=== PATIENT | male | born 1935 | race Caucasian/White ===

== ENCOUNTER 2019-02-02 10:04 | Emergency (ER) | payer OTHER ==
--- OUTSIDE RECORDS SUMMARY | 2019-02-02 10:10 | XMS REPORT | Continuity of Care Document ---
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 Active [facility] PAIN FROM T12 4 Medical FRACTURE Center BACK PAIN: T-12 Active [facility] FX W/ MILD 4 [facility] FRAGMENT RETR [place] Bladder cancer Resolved Problem 10/22/2014 OPID [facility] Broken Resolved Problem 10/22/2014 11895 OPI legs<sup>1</sup [facility] BACKACHE NOS Active [facility] FX DORSAL Active [facility] VERTEBRA-CLOSE [facility] PAIN IN LIMB Active [facility] Medications Medication Details Route Status Patient Ordering Order Source Instructions Provider Date heparin sodium, 5,000 unit, Inactive [facility] porcine 2500 Route: SUB-Q, 2013 Medical UNT/ML Drug form: INJ, Center Injectable Q8H, Dosing Solution Weight 84, kg, Start date: 08/08/14 16:00:00, Duration: 30 day, Stop date: 09/07/14 8:00:00 Bisacodyl 10 mg, 1 supp, No Longer [facility] Route: AL, Drug Active 2013 Medical form: SUPP, Center Daily, Dosing Weight 84, kg, PRN Constipation, Start date: 08/07/14 10:54:00, Duration: 30 day, Stop date: 09/06/14 10:53:00Notes: (Same As: Dulcolax, Bisco-Lax) Lidocaine 1 patch, TOP, Active [facility] Hydrochloride Daily, Pain, 2014 Medical 0.05 MG/MG Remove after 12 Center Transdermal hours, # 30 Patch patch, 0 [Lidoderm] Refill(s)Specia l Instructions: Remove after 12 hours remove patch 1 patch, Route: No Longer [facility] TOP, Bedtime, Active 2013 Medical Drug form: [place] ERFILM, Start date: 08/06/14 21:00:00, Duration: 30 day, Stop date: 09/04/14 21:00:00Notes: Remove patch 12 hours after application each day. Naprosyn 500 mg, 1 tab, No Longer [facility] Route: PO, Drug Active 2013 Medical form: TAB, BID, Center Dosing Weight 84, kg, Start date: 08/06/14 17:00:00, Duration: 30 day, Stop date: 09/05/14 9:00:00Notes: (Same as: Naprosyn) Take with food. Miralax 17 gm, 1 pkt, No Longer [facility] Route: PO, Drug Active 2013 Medical form: PWDR, [place] BID, Dosing Weight 84, kg, Start date: 08/06/14 17:00:00, Duration: 30 day, Stop date: 09/05/14 9:00:00Notes: Dissolve in 8 oz of water or juice. (Same as: Miralax) Robaxin 500 mg, Route: Inactive [facility] PO, Drug form: 2013 Medical TAB, Q8H, Center Dosing Weight 84, kg, Start date: 08/06/14 16:00:00, Duration: 30 day, Stop date: 09/05/14 8:00:00 Lidocaine 1 patch, Route: No Longer [facility] Hydrochloride TOP, Daily, Active 2013 Medical 0.05 MG/MG Drug form: [place] Transdermal FILM, Start Patch date: 08/06/14 [Lidoderm] 12:00:00, Duration: 30 day, Stop date: 09/05/14 9:00:00, Remove after 12 hoursSpecial Instructions: Remove after 12 hoursNotes: Apply only once for up to 12 hours in a 24-hour period (12 hours on and 12 hours off). (Same as: Lidoderm) "Remove old patch before application of new patch" Acetaminophen 500 mg, 1 tab, Inactive [facility] Route: PO, Drug 2013 Medical form: TAB, Q6H, Center Dosing Weight 84, kg, Start date: 08/06/14 12:00:00, Duration: 30 day, Stop date: 09/05/14 6:00:00Notes: Max acetaminophen 4000 mg/day (4 gm/day). (Same as: Tylenol Extra Strength) Tramadol 100 mg, 2 tab, No Longer [place] Route: PO, Drug Active 2013 Medical form: TAB, Q6H, Center Dosing Weight 84, kg, PRN as needed for pain, Start date: 08/06/14 12:00:00, Duration: 30 day, Stop date: 09/05/14 6:00:00Notes: Not to exceed 400mg/day. (Same As: Ultram) Robaxin 500 mg, 1 tab, No Longer [place] Route: PO, Drug Active 2013 Medical form: TAB, Q8H, Center Dosing Weight 84, kg, PRN as needed for pain, Start date: 08/06/14 10:44:00, Duration: 30 day, Stop date: 09/05/14 10:43:00Notes: (Same as:Robaxin) Acetaminophen 500 mg, 1 tab, No Longer [place] Route: PO, Drug Active 2013 Medical form: TAB, Q4H, Center Dosing Weight 84.091, kg, PRN Temperature >100.4, Start date: 08/06/14 10:42:00, Duration: 30 day, Stop date: 09/05/14 10:41:00, T > 100.4Notes: Max acetaminophen 4000 mg/day (4 gm/day). (Same as: Tylenol Extra Strength) Acetaminophen 1 tab, Route: Inactive [place] 325 MG / PO, Drug Form: 2013 Medical Hydrocodone TAB, Dosing Center Bitartrate 10 Weight 84.091, MG Oral Tablet kg, Q4H, PRN as needed for pain, Start date: 08/06/14 10:42:00, Duration: 30 day, Stop date: 09/05/14 10:41:00Notes: Do not exceed 4gm/day of acetaminophen. (Same as: [place] 325/10) Saline Flush 10 ml, Route: No Longer [place] 0.9% MISC, Drug Active 2013 Medical Form: INJ, Center Dosing Weight 84.091, kg, Q12H, Start date: 08/05/14 21:00:00, Duration: 30 day, Stop date: 09/04/14 9:00:00Notes: (Same as: BD Posiflush) sennosides, [facility]URSING HOME 8.6 mg, 1 tab, No Longer [place] Route: PO, Drug Active 2013 Medical Form: TAB, Center Dosing Weight 84.091, kg, Q12H, Start date: 08/05/14 21:00:00, Duration: 30 day, Stop date: 09/04/14 9:00:00Notes: (Same as: Senokot) Docusate 100 mg, 1 cap, No Longer [place] Route: PO, Drug Active 2013 Medical form: CAP, Center Q12H, Dosing Weight 84.091, kg, Start date: 08/05/14 21:00:00, Duration: 30 day, Stop date: 09/04/14 9:00:00Notes: (Same as: Colace) (Do Not Crush) Famotidine 20 mg, 2 mL, No Longer [place] Route: IVP, Active 2013 Medical Drug form: INJ, Center Q12H, Dosing Weight 84.091, kg, Start date: 08/05/14 21:00:00, Duration: 30 day, Stop date: 09/04/14 9:00:00Notes: (Same as: Pepcid) Can be dilute in 5-10cc NS IVP: Slow IV push over at least 2 minutes. Diazepam 5 mg, 1 tab, No Longer [place] Route: PO, Drug Active 2013 Medical form: TAB, Q8H, Center Dosing Weight 84.091, kg, Start date: 08/05/14 16:00:00, Duration: 30 day, Stop date: 09/04/14 8:00:00Notes: (Same as: Valium) Acetaminophen 1 tab, Route: No Longer [place] 325 MG / PO, Drug Form: Active 2013 Medical Hydrocodone TAB, Dosing Center Bitartrate 10 Weight 84.091, MG Oral Tablet kg, Q4H, Start date: 08/05/14 16:00:00, Duration: 30 day, Stop date: 09/04/14 12:00:00Notes: Do not exceed 4gm/day of acetaminophen. (Same as: [place] 325/10) Saline Flush 10 ml, Route: No Longer [place] 0.9% MISC, Drug Active 2013 Medical Form: INJ, Center Dosing Weight 84.091, kg, PRN, PRN Line Flush, Start date: 08/05/14 12:29:00, Duration: 30 day, Stop date: 09/04/14 12:28:00Notes: (Same as: BD Posiflush) Ondansetron 4 mg, 2 mL, No Longer Route: IVP, Active 2013 Medical Drug form: INJ, Center Q8H, Dosing Weight 84.091, kg, PRN Nausea & Vomiting, Start date: 08/05/14 12:29:00, Duration: 30 day, Stop date: 09/04/14 12:28:00Notes: (Same as: Zofran) Morphine 2 mg, 1 mL, No Longer [place] Route: IVP, Active 2013 Medical Drug form: INJ, Center Q1H, Dosing Weight 84.091, kg, PRN Pain Score 7-10, Start date: 08/05/14 12:29:00, Duration: 30 day, Stop date: 09/04/14 12:28:00Notes: (Same as:MORPhine Sulfate) Acetaminophen 650 mg, 20.3 No Longer [place] mL, Route: PO, Active 2013 Medical Drug form: LIQ, Center Q4H, Dosing Weight 84.091, kg, PRN Pain 1-3/Temp > 99.5 F, Start date: 08/05/14 12:29:00, Duration: 30 day, Stop date: 09/04/14 12:28:00Notes: Max acetaminophen=4 000mg/day (4 gm/day). (Same as: Tylenol) Acetaminophen 1 tab, Route: No Longer [place] 325 MG / PO, Drug Form: Active 2013 Medical Hydrocodone TAB, Dosing Center Bitartrate 10 Weight 84.091, MG Oral Tablet kg, Q4H, PRN Pain Score 4-6, Start date: 08/05/14 12:29:00, Duration: 30 day, Stop date: 09/04/14 12:28:00Notes: Do not exceed 4gm/day of acetaminophen. (Same as: [place] 325/10) Zofran 4 mg, Route: Inactive [facility] IVP, Drug form: 2013 Medical INJ, ONCE, Center Dosing Weight 84.091, kg, Priority: STAT, Start date: 08/05/14 11:59:00, Stop date: 08/05/14 11:59:00 Diazepam 5 mg, 1 tab, Inactive [facility] Route: PO, Drug 2013 Medical form: TAB, Q8H, Center kg, Start date: 07/29/14 16:00:00, Duration: 30 day, Stop date: 08/28/14 8:00:00Notes: (Same as: Valium) Docusate Sodium 100 mg=1 cap, Active [facility] 100 MG Oral PO, Q12H, # 60 2013 Medical Capsule cap, 0 Center Refill(s) diazepam 5 mg 5 mg=1 tab, PO, Active [facility] oral tablet Q8H, # 30 tab, 2013 Medical 0 Refill(s) Center Acetaminophen 2 tab, PO, Q4H, Active [facility] 325 MG / Pain Score 2013 Medical Hydrocodone 7-10, # 60 tab, Center Bitartrate 10 0 Refill(s) MG Oral Tablet Saline Flush 5 ml, Route: Inactive [facility] 0.9% IVP, Drug Form: 2013 Medical INJ, kg, Q12H, Center Start date: 07/29/14 9:00:00, Duration: 30 day, Stop date: 08/27/14 21:00:00Notes: (Same as: BD Posiflush) Docusate 100 mg, 1 cap, Inactive [facility] Route: PO, Drug 2013 Medical form: CAP, Center Q12H, kg, Start date: 07/29/14 9:00:00, Duration: 30 day, Stop date: 08/27/14 21:00:00Notes: (Same as: Colace) (Do Not Crush) Famotidine 20 mg, 2 mL, Inactive [facility] Route: IVP, 2013 Medical Drug form: INJ, Center Q12H, kg, Start date: 07/29/14 9:00:00, Duration: 30 day, Stop date: 08/27/14 21:00:00Notes: (Same as: Pepcid) Can be dilute in 5-10cc NS IVP: Slow IV push over at least 2 minutes. Saline Flush 5 ml, Route: Inactive [place] 0.9% IVP, Drug Form: 2013 Medical INJ, kg, PRN, Center PRN Line Flush, Start date: 07/29/14 8:13:00, Duration: 30 day, Stop date: 08/28/14 8:12:00Notes: (Same as: BD Posiflush) Acetaminophen 650 mg, 20.3 Inactive [place] mL, Route: PO, 2013 Medical Drug form: LIQ, Center Q4H, kg, PRN Pain 1-3/Temp > 99.5 F, Start date: 07/29/14 8:13:00, Duration: 30 day, Stop date: 08/28/14 8:12:00Notes: Max acetaminophen=4 000mg/day (4 gm/day). (Same as: Tylenol) Acetaminophen 2 tab, Route: Inactive [place] 325 MG / PO, Drug Form: 2013 Medical Hydrocodone TAB, kg, Q4H, Center Bitartrate 10 PRN Pain Score MG Oral Tablet 7-10, Start date: 07/29/14 8:13:00, Duration: 30 day, Stop date: 08/28/14 8:12:00Notes: Do not exceed 4gm/day of acetaminophen. (Same as: [place] 325/10) Morphine 2 mg, 1 mL, Inactive [facility] Route: IVP, 2013 Medical Drug form: INJ, Center Q1H, kg, PRN Pain Score 7-10, Start date: 07/29/14 8:13:00, Duration: 30 day, Stop date: 08/28/14 8:12:00Notes: (Same as:MORPhine Sulfate) Allergies, Adverse Reactions, Alerts Substance Category Reaction Severity Reaction Status Date Comments Source type Reported SULFA Drug SULFA [facility] allergy 4 Neuro PENICILLIN Drug PENICILLIN [facility] allergy 4 Neuro penicillins Assertion Drug Active [facility] allergy [facility] sulfa drugs Assertion Drug Active [facility] allergy [facility] Immunizations Immunization Date Given Site Status Last Updated Comments Source Results Order Name Results Value Reference Date Interpretation Comments Source Range Spine Spine EXAM: THORACOLUMBAR SPINE 2 VIEWS 10/20 - [facility] thoracic 2 thoracic - [facility] views DX views DX DATE: Oct 20, 2014 12:43:00 PM Read by: Nirav Díaz MD Dictated Date/time: 10/20/14 14:58 Electronically Signed by: Nirav Díaz MD 10/20/14 15:00 FINAL REPORT INDICATION: 805.2 Closed Fracture of Dorsal [thoracic] Vertebra without Mention of Spinal Cord Injury COMPARISON: Thoracolumbar series 09/01/2014 TECHNIQUE: AP and lateral radiographs of the thoracolumbar spine FINDINGS: There has been no progressive loss in height at the T12 vertebral body fracture with moderate height loss. There is unchanged mild focal kyphosis at the T12 level. No subluxation of the thorac olumbar spine is apparent. The mediastinal contours are normal. IMPRESSION: Unchanged appearance of T12 vertebral body fracture. Spine Spine EXAM: THORACIC SPINE 2 VIEWS 09/01 - [facility] thoracic 2 thoracic - Counselor views DX views DX DATE: Sep 01, 2014 01:30:00 PM Read by: Nirav Díaz MD Dictated Date/time: 09/01/14 15:38 Electronically Signed by: Nirav Díaz MD 09/01/14 15:39 FINAL REPORT INDICATION: 805.2 Closed Fracture of Dorsal [thoracic] Vertebra without Mention of Spinal Cord Injury COMPARISON: Lumbar spine CT 08/05/2014 TECHNIQUE: AP and lateral radiographs of the thoracic spine FINDINGS: There is generalized osteopenia. There has been slight interval remodeling without progressive loss in height at the T12 vertebral body fracture. Remaining imaged vertebral body heights are m aintained. There is slight focal kyphosis at the T12 level. Mild thoracic spondylosis is unchanged. IMPRESSION: Mild remodeling without progressive loss in height at T12 vertebral body fracture. HEMATOLOGY Lymphocytes 8.3 % 20.0 - 08/05 [facility] 40.0 /2013 [facility] HEMATOLOGY Segs 80.3 % 45.0 - 08/05 [facility] 75.0 /2014 [facility] HEMATOLOGY Plt Morph See Note 4 08/05 4Result Comment: Due Medical (08/05/14 12:55 PM) to Center occassional clumps, the actual count may be slightly higher. HEMATOLOGY Monocytes 8.0 % 2.0 - 12.0 08/05 [facility] HEMATOLOGY RBC Morph Normal 08/05 [facility] (08/05/14 12:55 PM) [place] HEMATOLOGY Lymphocytes 1.1 K/CMM 1.0 - 5.5 08/05 [place] /2013 [facility] HEMATOLOGY Segs-Bands # 11.1 K/CMM 1.5 - 8.1 08/05 [facility] HEMATOLOGY Basophils 2.6 % 0.0 - 1.0 08/05 [facility] HEMATOLOGY Eosinophils 0.8 % 0.0 - 4.0 08/05 [facility] HEMATOLOGY Basophils # 0.4 K/CMM 0.0 - 0.2 08/05 [facility] HEMATOLOGY Eosinophils 0.1 K/CMM 0.0 - 0.5 08/05 [facility] HEMATOLOGY Monocytes # 1.1 K/CMM 0.0 - 0.8 08/05 [facility] HEMATOLOGY WBC 13.8 K/CMM 3.7 - 10.4 08/05 [facility] HEMATOLOGY RBC 4.67 M/CMM 4.70 - 08/05 [place] 6.10 [facility] HEMATOLOGY Hct 40.6 % 42.0 - 08/05 54.0 [facility] HEMATOLOGY Hgb 13.7 g/dL 14.0 - 08/05 18.0 [facility] HEMATOLOGY Platelet 178 K/CMM 133 - 450 08/05 [facility] HEMATOLOGY MPV 9.4 fL 7.4 - 10.4 08/05 [facility] HEMATOLOGY MCV 86.9 fL 80.0 - 08/05 [place] 94.0 [facility] HEMATOLOGY RDW 11.8 % 11.5 - 08/05 [place] 14.5 [facility] HEMATOLOGY MCH 29.4 pg 27.0 - 08/05 31.0 [facility] HEMATOLOGY MCHC 33.8 g/dL 32.0 - 08/05 [place] 36.0 [facility] CHEM PANEL eGFR 52 08/05 2Result Comment: The eGFR is calculated using the CKD-EPI formula. In most young, healthy individuals the eGFR will be >90 mL/ min/1.73m2. The eGFR declines with age. An eGFR of 60-89 may be normal in [facility] mL/min/1.73 some populations, particularly the elderly, for whom the CKD-EPI formula has not been extensively validated. Use of the eGFR is not recommended in the following populations: [address] Individuals with unstable creatinine concentrations, including patients and those with serious co-morbid conditions. Patients with extremes in muscle mass or diet. The data above are obtained from the National Kidney Disease Education Program (NKDEP) which additionally recommends that when the eGFR is used in patients with extremes of body mass index for purposes of drug dosing, the eGFR should be multiplied by the estimated BMI. CHEM PANEL CO2 28 meq/L 24 - 32 08/05 [facility] CHEM PANEL Chloride Lvl 101 meq/L 95 - 109 08/05 [facility] CHEM PANEL Calcium Lvl 8.6 mg/dL 8.5 - 10.5 08/05 [facility] CHEM PANEL Potassium 5.0 meq/L 3.5 - 5.1 08/05 1Result [facility] Comment: [facility] Slightly Hemolyzed. CHEM PANEL Sodium Lvl 135 meq/L 135 - 145 08/05 [facility] CHEM PANEL Creatinine 1.3 mg/dL 0.5 - 1.4 08/05 [facility] CHEM PANEL BUN 33 mg/dL 7 - 22 08/05 [facility] CHEM PANEL Glucose Lvl 125 mg/dL 70 - 99 08/05 3Interpretive Data: Adult reference range values reflect the clinical guidelines of the [place] [employer]. [facility] CHEM PANEL AGAP 11.0 meq/L 10.0 - 08/05 [facility] . [facility] CHEM PANEL eGFR 52 07/29 1Result Comment: The eGFR is calculated using the CKD-EPI formula. In most young, healthy individuals the eGFR will be >90 mL/ min/1.73m2. The eGFR declines with age. An eGFR of 60-89 may be normal in [facility] mL/min/1.73 some populations, particularly the elderly, for whom the CKD-EPI formula has not been extensively validated. Use of the eGFR is not recommended in the following populations: [address] Individuals with unstable creatinine concentrations, including patients and those with serious co-morbid conditions. Patients with extremes in muscle mass or diet. The data above are obtained from the National Kidney Disease Education Program (NKDEP) which additionally recommends that when the eGFR is used in patients with extremes of body mass index for purposes of drug dosing, the eGFR should be multiplied by the estimated BMI. CHEM PANEL Alk Phos 129 unit/L 39 - 136 07/29 [facility] CHEM PANEL AST 28 unit/L 0 - 37 07/29 [facility] CHEM PANEL Albumin Lvl 4.1 g/dL 3.5 - 5.0 07/29 [facility] CHEM PANEL ALT 53 unit/L 0 - 65 07/29 [facility] CHEM PANEL Bili Total 1.6 mg/dL 0.2 - 1.3 07/29 [facility] CHEM PANEL Glucose Lvl 151 mg/dL 70 - 99 07/29 2Interpretive Data: Adult reference range values reflect the clinical guidelines of the [place] [employer]. [facility] CHEM PANEL Creatinine 1.3 mg/dL 0.5 - 1.4 07/29 [facility] CHEM PANEL BUN 17 mg/dL 7 - 22 07/29 [facility] CHEM PANEL CO2 27 meq/L 24 - 32 07/29 [facility] CHEM PANEL Chloride Lvl 106 meq/L 95 - 109 07/29 [facility] CHEM PANEL Total 6.8 g/dL 6.4 - 8.4 07/29 [facility] CHEM PANEL Sodium Lvl 141 meq/L 135 - 145 07/29 [facility] CHEM PANEL Potassium 5.1 meq/L 3.5 - 5.1 07/29 [facility] CHEM PANEL Calcium Lvl 9.2 mg/dL 8.5 - 10.5 07/29 [facility] CHEM PANEL A/G Ratio 1.5 0.7 - 1.6 07/29 [facility] CHEM PANEL Globulin 2.7 g/dL 2.0 - 4.0 07/29 [facility] CHEM PANEL AGAP 13.1 meq/L 10.0 - 07/29 20.0 [facility] CHEM PANEL B/C Ratio 13 6 - 25 07/29 [facility] HEMATOLOGY Segs-Bands # 4.8 K/CMM 1.5 - 8.1 07/29 [facility] HEMATOLOGY Eosinophils 0.2 % 0.0 - 4.0 07/29 [facility] HEMATOLOGY Basophils 0.3 % 0.0 - 1.0 07/29 [facility] HEMATOLOGY Monocytes # 0.1 K/CMM 0.0 - 0.8 07/29 [facility] HEMATOLOGY Lymphocytes 0.6 K/CMM 1.0 - 5.5 07/29 [place] # /2013 [facility] HEMATOLOGY Lymphocytes 11.6 % 20.0 - 07/29 [place] 40.0 /2013 [facility] HEMATOLOGY Monocytes 1.2 % 2.0 - 12.0 07/29 [facility] HEMATOLOGY Segs 86.7 % 45.0 - 07/29 75.0 /2013 [facility] HEMATOLOGY PTT 34.9 s 22.9 - 07/29 4Interpretive [facility] 35.8 Data: [facility] Range: 57 - 92 Seconds HEMATOLOGY PT 14.6 s 12.0 - 07/29 14.7 [facility] HEMATOLOGY INR 1.13 0.85 - 07/29 3Interpretive Data: RECOMMENDED RANGES FOR PROTIME INR: [facility] 1.17 2.0-3.0 for most medical and surgical thromboembolic states. Medical 2.5-3.5 for artificial heart valves and recurrent embolism. Center INR SHOULD BE USED ONLY FOR PATIENTS ON STABLE ANTICOAGULANT THERAPY. HEMATOLOGY MCHC 33.6 g/dL 32.0 - 07/29 36.0 [facility] HEMATOLOGY MCH 29.8 pg 27.0 - 07/29 31.0 [facility] HEMATOLOGY RDW 12.5 % 11.5 - 07/29 14.5 [facility] HEMATOLOGY MPV 9.4 fL 7.4 - 10.4 07/29 [facility] HEMATOLOGY Platelet 148 K/CMM 133 - 450 07/29 [facility] HEMATOLOGY Hgb 16.0 g/dL 14.0 - 07/29 18.0 [facility] HEMATOLOGY MCV 88.5 fL 80.0 - 07/29 [place] 94.0 [facility] HEMATOLOGY WBC 5.5 K/CMM 3.7 - 10.4 07/29 [facility] HEMATOLOGY RBC 5.37 M/CMM 4.70 - 07/29 [facility] 6.10 [facility] HEMATOLOGY Hct 47.5 % 42.0 - 07/29 [facility] 54.0 /2013 [facility] Vital Signs Vital Sign Value Date Comments Source Weight 181.0 10/20/2014 [facility] Height 72 10/20/2014 [facility] Temperature Oral (F) 97.7 F 10/20/2014 [facility] Heart Rate 81 10/20/2014 [facility] Systolic (mm Hg) 156 10/20/2014 [facility] Diastolic (mm Hg) 89 10/20/2014 [facility] Weight 185 09/01/2014 [facility] Height 73 09/01/2014 [facility] Temperature Oral (F) 98.1 F 09/01/2014 [facility] Heart Rate 78 09/01/2014 [facility] Systolic (mm Hg) 128 09/01/2014 [facility] Diastolic (mm Hg) 84 09/01/2014 [facility] Systolic (mm Hg) 115 08/08/2014 [facility] Heart Rate 77 08/08/2014 [facility] Respitory Rate 18 08/08/2014 [facility] Temperature Oral (F) 97.7 F 08/08/2014 [facility] Diastolic (mm Hg) 68 08/08/2014 [facility] Systolic (mm Hg) 114 08/08/2014 [facility] Diastolic (mm Hg) 71 08/08/2014 [facility] Temperature Oral (F) 98.1 F 08/08/2014 [facility] Heart Rate 74 08/08/2014 [facility] Systolic (mm Hg) 113 08/08/2014 [facility] Diastolic (mm Hg) 68 08/08/2014 [facility] Heart Rate 71 08/08/2014 [facility] Temperature Oral (F) 97 F 08/08/2014 [facility] Respitory Rate 18 08/08/2014 [facility] Respitory Rate 16 08/07/2014 [facility] Weight 84 08/05/2014 [facility] BMI Calculated 23.78 08/05/2014 [facility] Height 187.96 cm 08/05/2014 [facility] Weight 84 08/05/2014 [facility] Weight 84 08/05/2014 [facility] Respitory Rate 18 07/29/2014 [facility] Systolic (mm Hg) 183 07/29/2014 [facility] Temperature Oral (F) 97.4 F 07/29/2014 [facility] Heart Rate 89 07/29/2014 [facility] Diastolic (mm Hg) 94 07/29/2014 [facility] BMI Calculated 24.46 07/29/2014 [facility] Weight 84.091 07/29/2014 [facility] Height 185.42 cm 07/29/2014 [facility] Temperature Oral (F) 98.5 F 07/29/2014 [facility] Systolic (mm Hg) 156 07/29/2014 [facility] Diastolic (mm Hg) 96 07/29/2014 [facility] Heart Rate 83 07/29/2014 [facility] Respitory Rate 16 07/29/2014 [facility] Encounters Location Location Encounter Encounter Reason Attending ADM DC Status Source Details Type Number For Provider Date Date Visit [facility] Inpatient [id number] Chris 07/29 07/29 [facility] /2013 [facility] Inpatient [id number] Chris 08/05 08/08 [facility] /2013 [facility] [id number] Chris 09/01 09/01 [facility] [address] [place] /2013 [facility] Outpt Diag [id number] Chris 09/01 09/02 [facility] /2013 [facility] Lab Report [id number] Chris 09/02 09/02 Toni Blandon [address] [place] /2013 [facility] Office [id number] Chris 10/20 10/20 [facility] Visit [address] [place] /2013 [facility] Outpt Diag [id number] Chris 10/20 10/21 [facility] /2013 [facility] Procedures Procedure Code Date Perfomer Comments Source
--- OUTSIDE RECORDS SUMMARY | 2019-02-02 10:11 | XMS REPORT | Summary of Care ---
:1935 Author Encounter HQ Rah_ry(LIYAH) [id number] Date(s): 09/01/14 - 09/01/14 [facility] Outpatient Imaging [address] Discharge Disposition: Home Physician Attending: Chris Mercado MD Reason for Visit 805.2 - FX DORSAL VERTE Problem List Condition Effective Dates Status Health Status Informant Bladder cancer(Confirmed) Resolved Broken legs(Confirmed)1 Resolved 73258 Allergies, Adverse Reactions, Alerts Substance Reaction Severity Status penicillins Active sulfa drugs Active Medications No data available for this section Medications Administered During Your Visit No data available for this section Immunizations No data available for this section Social History Social History Type Response Smoking Status Never smoker, Exposure to Tobacco Smoke None, Cigarette Smoking Last 365 Days No, Reg Smoking Cessation Counseling No
--- OUTSIDE RECORDS SUMMARY | 2019-02-02 10:11 | XMS REPORT | Summary of Care ---
:1935 Author Encounter HQ Rah_ry(LIYAH) [id number] Date(s): 10/20/14 - 10/20/14 [facility] Outpatient Imaging [address] Discharge Disposition: Home Physician Attending: Chris Mercado MD Reason for Visit 805.2 - FX DORSAL VERTE Problem List Condition Effective Dates Status Health Status Informant Bladder cancer(Confirmed) Resolved Broken legs(Confirmed)1 Resolved 42128 Allergies, Adverse Reactions, Alerts Substance Reaction Severity [...]
--- OUTSIDE RECORDS SUMMARY | 2019-02-02 10:11 | XMS REPORT | Summary of Care ---
:1935 Author Encounter HQ Fidel(LIYAH) [id number] Date(s): 08/05/14 - 08/08/[address] Discharge Disposition: Home Physician Attending: Chris Mercado MD Physician Admitting: Chris Mercado MD Physician_Referring: Sky Patino MD Reason for Visit INTRACTABLE PAIN FROM T12 FRACTURE Vital Signs Most recent to oldest 1 2 3 [Reference Range]: Height 187.96 cm (08/05/14 4:50 PM) Temperature Oral [96.4-99.1 97.7 DegF 98.1 DegF 97 DegF DegF] (08/08/14 8:28 AM) (08/08/14 4:23 AM) (08/08/14 12:40 AM) Systolic Blood Pressure 115 mmHg 114 mmHg 113 mmHg [90-140 mmHg] (08/08/14 8:28 AM) (08/08/14 4:23 AM) (08/08/14 12:40 AM) Diastolic Blood Pressure 68 mmHg 71 mmHg 68 mmHg [60-90 mmHg] (08/08/14 8:28 AM) (08/08/14 4:23 AM) (08/08/14 12:40 AM) Respiratory Rate [14-20 BRMIN] 18 BRMIN 18 BRMIN 16 BRMIN (08/08/14 8:28 AM) (08/07/14 7:53 PM) (08/07/14 4:07 PM) Peripheral Pulse Rate [60-100 77 bpm 74 bpm 71 bpm bpm] (08/08/14 8:28 AM) (08/08/14 4:23 AM) (08/08/14 12:40 AM) Weight 84 kg 84 kg 84 kg (08/05/14 4:50 PM) (08/05/14 3:14 PM) (08/05/14 3:13 PM) Body Mass Index 23.78 m2 (08/05/14 4:50 PM) Problem List Condition Effective Dates Status Health Status Informant Bladder cancer(Confirmed) Resolved Broken legs(Confirmed)1 Resolved 17120 Allergies, Adverse Reactions, Alerts Substance Reaction Severity Status penicillins Active sulfa drugs Active Medications acetaminophen 500 mg, 1 tab, Route: PO, Drug form: TAB, Q4H, Dosing Weight 84.091, kg, PRN Temperature >100.4, Start date: 08/06/14 10:42:00, Duration: 30 day, Stop date: 09/05/14 10:41:00, T > 100.4 Notes: Max acetaminophen 4000 mg/day (4 gm/day). (Same as: Tylenol Extra Strength) Start Date: 08/06/14 Stop Date: 08/08/14 Status: Discontinuedacetaminophen 500 mg, 1 tab, Route: PO, Drug form: TAB, Q6H, Dosing Weight 84, kg, Start date : 08/06/14 12:00:00, Duration: 30 day, Stop date: 09/05/14 6:00:00 Notes: Max acetaminophen 4000 mg/day (4 gm/day). (Same as: Tylenol Extra Strength) Start Date: 08/06/14 Stop Date: 08/06/14 Status: Discontinuedacetaminophen 650 mg, 20.3 mL, Route: PO, Drug form: LIQ, Q4H, Dosing Weight 84.091, kg, PRN Pain 1-3/Temp > 99.5 F, Start date: 08/05/14 12:29:00, Duration: 30 day, Stop date: 09/04/14 12:28:00 Notes: Max xuobddrbdmhjv=9587sk/day (4 gm/day). (Same as: Tylenol) Start Date: 08/05/14 Stop Date: 08/06/14 Status: Discontinuedacetaminophen-hydrocodone 325 mg-10 mg oral tablet 1 tab, Route: PO, Drug Form: TAB, Dosing Weight 84.091, kg, Q4H, PRN as needed for pain, Start date:08/06/14 10:42:00, Duration: 30 day, Stop date: 09/05/14 10 :41:00 Notes: Do not exceed 4gm/day of acetaminophen. (Same as: [place] 325/10) Start Date: 08/06/14 Stop Date: 08/06/14 Status: Discontinuedacetaminophen-hydrocodone 325 mg-10 mg oral tablet 1 tab, Route: PO, Drug Form: TAB, Dosing Weight 84.091, kg, Q4H, PRN Pain Score 4-6, Start date: 08/05/14 12:29:00, Duration: 30 day, Stop date: 09/04/14 12:28: 00 Notes: Do not exceed 4gm/day of acetaminophen. (Same as: [place] 325/10) Start Date: 08/05/14 Stop Date: 08/06/14 Status: Discontinuedacetaminophen-hydrocodone 325 mg-10 mg oral tablet 1 tab, Route: PO, Drug Form: TAB, Dosing Weight 84.091, kg, Q4H, Start date: 16:00:00, Duration: 30 day, Stop date: 09/04/14 12:00:00 Notes: Do not exceed 4gm/day of acetaminophen. (Same as: [place] 325/10) Start Date: 08/05/14 Stop Date: 08/06/14 Status: Discontinuedbisacodyl 10 mg, 1 supp, Route: NM, Drug form: SUPP, Daily, Dosing Weight 84, kg, PRN Constipation, Start date: 08/07/14 10:54:00, Duration: 30 day, Stop date: 10:53:00 Notes: (Same As: Dulcolax, Bisco-Lax) Start Date: 08/07/14 Stop Date: 08/08/14 Status: Discontinueddiazepam 5 mg, 1 tab, Route: PO, Drug form: TAB, Q8H, Dosing Weight 84.091, kg, Start date: 08/05/14 16:00:00, Duration: 30 day, Stop date: 09/04/14 8:00:00 Notes: (Same as: Valium) Start Date: 08/05/14 Stop Date: 08/06/14 Status: Discontinueddocusate 100 mg, 1 cap, Route: PO, Drug form: CAP, Q12H, Dosing Weight 84.091, kg, Start date: 08/05/14 21:00:00, Duration: 30 day, Stop date: 09/04/14 9:00:00 Notes: (Same as: Colace) (Do Not Crush) Start Date: 08/05/14 Stop Date: 08/06/14 Status: Discontinuedfamotidine 20 mg, 2 mL, Route: IVP, Drug form: INJ, Q12H, Dosing Weight 84.091, kg, Start date: 08/05/14 21:00:00, Duration: 30 day, Stop date: 09/04/14 9:00:00 Notes: (Same as: Pepcid)Can be dilute in 5-10cc NS IVP: Slow IV push over at least 2 minutes. Start Date: 08/05/14 Stop Date: 08/08/14 Status: Discontinuedheparin 5000 units/mL injectable solution 5,000 unit, Route: SUB-Q, Drug form: INJ, Q8H, Dosing Weight 84, kg, Start date : 08/08/14 16:00:00, Duration: 30 day, Stop date: 09/07/14 8:00:00 Start Date: 08/08/14 Stop Date: 08/08/14 Status: CanceledLidoderm 5% topical film (patch) 1 patch, TOP, Daily, Pain, Remove after 12 hours, # 30 patch, 0 Refill(s) Special Instructions: Remove after 12 hours Start Date: 08/07/14 Status: OrderedLidoderm 5% topical film (patch) 1 patch, Route: TOP, Daily, Drug form: FILM, Start date: 08/06/14 12:00:00, Duration: 30 day, Stop date: 09/05/14 9:00:00, Remove after 12 hours Special Instructions: Remove after 12 hours Notes: Apply only once for up to 12 hours in x37-caus period (12 hours on and 12 hours off).(Same as: Lidoderm)"Remove old patch before application of new patch" Start Date: 08/06/14 Stop Date: 08/08/14 Status: DiscontinuedMiraLax 17 gm, 1 pkt, Route: PO, Drug form: PWDR, BID, Dosing Weight 84, kg, Start date : 08/06/14 17:00:00, Duration: 30 day, Stop date: 09/05/14 9:00:00 Notes: Dissolve in 8 oz of water or juice.(Same as: Miralax) Start Date: 08/06/14 Stop Date: 08/08/14 Status: Discontinuedmorphine Sulfate 2 mg, 1 mL, Route: IVP, Drug form: INJ, Q1H, Dosing Weight 84.091, kg, PRN Pain Score 7-10, Start date: 08/05/14 12:29:00, Duration: 30 day, Stop date: 12:28:00 Notes: (Same as:MORPhine Sulfate) Start Date: 08/05/14 Stop Date: 08/06/14 Status: DiscontinuedNaprosyn 500 mg, 1 tab, Route: PO, Drug form: TAB, BID, Dosing Weight 84, kg, Start date : 08/06/14 17:00:00, Duration: 30 day, Stop date: 09/05/14 9:00:00 Notes: (Same as: Naprosyn) Take with food. Start Date: 08/06/14 Stop Date: 08/08/14 Status: Discontinuedondansetron 4 mg, 2 mL, Route: IVP, Drug form: INJ, Q8H, Dosing Weight 84.091, kg, PRN Nausea & Vomiting, Start date: 08/05/14 12:29:00, Duration: 30 day, Stop date: 09/04/14 12:28:00 Notes: (Same as: Zofran) Start Date: 08/05/14 Stop Date: 08/08/14 Status: Discontinuedremove patch 1 patch, Route: TOP, Bedtime, Drug form: ERFILM, Start date: 08/06/14 21:00:00, Duration: 30 day, Stop date: 09/04/14 21:00:00 Notes: Remove patch 12 hours after application each day. Start Date: 08/06/14 Stop Date: 08/08/14 Status: DiscontinuedRobaxin 500 mg, 1 tab, Route: PO, Drug form: TAB, Q8H, Dosing Weight 84, kg, PRN as needed for pain, Start date: 08/06/14 10:44:00, Duration: 30 day, Stop date: 10:43:00 Notes: (Same as:Robaxin) Start Date: 08/06/14 Stop Date: 08/08/14 Status: DiscontinuedRobaxin 500 mg, Route: PO, Drug form: TAB, Q8H, Dosing Weight 84, kg, Start date: 16:00:00, Duration: 30 day, Stop date: 09/05/14 8:00:00 Start Date: 08/06/14 Stop Date: 08/06/14 Status: CanceledSaline Flush 0.9% 10 ml, Route: MISC, Drug Form: INJ, Dosing Weight 84.091, kg, PRN, PRN Line Flush, Start date: 08/05/14 12:29:00, Duration: 30 day, Stop date: 09/04/14 12: 28:00 Notes: (Same as: BD Posiflush) Start Date: 08/05/14 Stop Date: 08/08/14 Status: DiscontinuedSaline Flush 0.9% 10 ml, Route: MISC, Drug Form: INJ, Dosing Weight 84.091, kg, Q12H, Start date: 08/05/14 21:00:00, Duration: 30 day, Stop date: 09/04/14 9:00:00 Notes: (Same as: BD Posiflush) Start Date: 08/05/14 Stop Date: 08/08/14 Status: Discontinuedsenna 8.6 mg, 1 tab, Route: PO, Drug Form: TAB, Dosing Weight 84.091, kg, Q12H, Start date: 08/05/14 21:00:00, Duration: 30 day, Stop date: 09/04/14 9:00:00 Notes: (Same as: Senokot) Start Date: 08/05/14 Stop Date: 08/06/14 Status: Discontinuedtramadol 100 mg, 2 tab, Route: PO, Drug form: TAB, Q6H, Dosing Weight 84, kg, PRN as needed for pain, Start date: 08/06/14 12:00:00, Duration: 30 day, Stop date: 6:00:00 Notes: Not to exceed 400mg/day. (Same As: Ultram) Start Date: 08/06/14 Stop Date: 08/08/14 Status: DiscontinuedZofran 4 mg, Route: IVP, Drug form: INJ, ONCE, Dosing Weight 84.091, kg, Priority: STAT , Start date: 08/05/14 11:59:00, Stop date: 08/05/14 11:59:00 Start Date: 08/05/14 Stop Date: 08/05/14 Status: Completed Results ELECTROLYTES Most recent to oldest [Reference Range]: 1 Sodium Lvl [135-145 mEq/L] 135 mEq/L (08/05/14 12:22 PM) Potassium Lvl [3.5-5.1 mEq/L] 5.0 mEq/L 1 (08/05/14 12:22 PM) Chloride Lvl [95-109 mEq/L] 101 mEq/L (08/05/14 12:22 PM) CO2 [24-32 mEq/L] 28 mEq/L (08/05/14 12:22 PM) AGAP [10.0-20.0 mEq/L] 11.0 mEq/L (08/05/14 12:22 PM) 1Result Comment: Specimen Slightly Hemolyzed.CHEM PANEL Most recent to oldest [Reference Range]: 1 Creatinine Lvl [0.5-1.4 mg/dL] 1.3 mg/dL (08/05/14 12:22 PM) eGFR 52 mL/min/1.73m2 2 *NA* (08/05/14 12:22 PM) BUN [7-22 mg/dL] 33 mg/dL *HI* (08/05/14 12:22 PM) Glucose Lvl [70-99 mg/dL] 125 mg/dL 3 *HI* (08/05/14 12:22 PM) Calcium Lvl [8.5-10.5 mg/dL] 8.6 mg/dL (08/05/14 12:22 PM) 2Result Comment: The eGFR is calculated using the CKD-EPI formula. In most young , healthy individualsthe eGFR will be >90 mL/min/1.73m2. The eGFR declines with age. An eGFR of 60-89 may be normal in some populations, particularly the elderly, for whom the CKD-EPI formula has not been extensively validated. Use of the eGFR is not recommended in the following populations: Individuals with unstable creatinine concentrations, including patients and those with serious co-morbid conditions. Patients with extremes in muscle mass or diet. The data above are obtained from the National Kidney Disease Education Program ( NKDEP) which additionally recommends that when the eGFR is used in patients with extremes of body mass index for purposesof drug dosing, the eGFR should be multiplied by the estimated BMI.3Interpretive Data: Adult reference range values reflect the clinical guidelines of the [place] [employer].HEMATOLOGY Most recent to oldest [Reference Range]: 1 WBC [3.7-10.4 K/CMM] 13.8 K/CMM *HI* (08/05/14 12:55 PM) RBC [4.70-6.10 M/CMM] 4.67 M/CMM *LOW* (08/05/14 12:55 PM) Hgb [14.0-18.0 g/dL] 13.7 g/dL *LOW* (08/05/14 12:55 PM) Hct [42.0-54.0 %] 40.6 % *LOW* (08/05/14 12:55 PM) MCV [80.0-94.0 fL] 86.9 fL (08/05/14 12:55 PM) MCH [27.0-31.0 pg] 29.4 pg (08/05/14 12:55 PM) MCHC [32.0-36.0 g/dL] 33.8 g/dL (08/05/14 12:55 PM) RDW [11.5-14.5 %] 11.8 % (08/05/14 12:55 PM) Platelet [133-450 K/CMM] 178 K/CMM (08/05/14 12:55 PM) MPV [7.4-10.4 fL] 9.4 fL (08/05/14 12:55 PM) Segs [45.0-75.0 %] 80.3 % *HI* (08/05/14 12:55 PM) Lymphocytes [20.0-40.0 %] 8.3 % *LOW* (08/05/14 12:55 PM) Monocytes [2.0-12.0 %] 8.0 % (08/05/14 12:55 PM) Eosinophils [0.0-4.0 %] 0.8 % (08/05/14 12:55 PM) Basophils [0.0-1.0 %] 2.6 % *HI* (08/05/14 12:55 PM) Segs-Bands # [1.5-8.1 K/CMM] 11.1 K/CMM *HI* (08/05/14 12:55 PM) Lymphocytes # [1.0-5.5 K/CMM] 1.1 K/CMM (08/05/14 12:55 PM) Monocytes # [0.0-0.8 K/CMM] 1.1 K/CMM *HI* (08/05/14 12:55 PM) Eosinophils # [0.0-0.5 K/CMM] 0.1 K/CMM (08/05/14 12:55 PM) Basophils # [0.0-0.2 K/CMM] 0.4 K/CMM *HI* (08/05/14 12:55 PM) RBC Morph Normal (08/05/14 12:55 PM) Plt Morph See Note 4 (08/05/14 12:55 PM) 4Result Comment: Due to occassional clumps, the actual count may be slightly higher. Medications Administered During Your Visit No data available for this section Immunizations No data available for this section Social History Social History Type Response Smoking Status Never smoker, Exposure to Tobacco Smoke None, Cigarette Smoking Last 365 Days No, Reg Smoking Cessation Counseling No Assessment and Plan Extracted from: Title: Clinical Document Author: Stormy Mathis DO Date: 08/06/14 PATIENT NAME: Jann Duran ATTENDING PHYSICIAN: Chris Mercado MD CONSULTING PHYSICIAN: Stormy Mathis DO DATE OF ADMISSION: 08/05/2014 REASON FOR CONSULTATION: preoperative clearance HISTORY OF PRESENT ILLNESS: 78 y/o male with h/o bladder CA s/p resection and BCG was recently admitted to [facility] after sustaining a T12 burst fracture after trying to lift a baby grand piano. He was e valuated by NS who recommended TLSO brace and follow up as outpatient. Yesterday, he fell while walking to the bathroom; states his legs gave out. He was transferred back to [facility] after repeat imaging noted worsening of his compression fracture. Patient has been taking scheduled norco and valium since his discharge. Since then, he has felt nauseous with decreased appetite and noted to have progressive weakness. Prior to fracture, patient states he was very active. He does all the yard and house work. He does not exercise or climb stairs regularly. He denies chest pain or dyspnea with any activity. REVIEW OF SYSTEMS: CONSTITUTIONAL: positive for weight loss in last week. negative for fever or malaise HEENT: positive for hearing loss. negative for change in vision, nasal congestion, sore throat or headaches CARDIOVASCULAR: negative for palpitations, orthopnea or peripheral edema RESPIRATORY: negative for cough or hemoptysis GASTROINTESTINAL: negative for N/V/D/C, hematemesis, hematochezia or melena GENITOURINARY: negative for dysuria, hematuria or frequency HEMATOLOGICAL: negative for easy bruising or spontaneous bleeding ENDOCRINE: negative for peripheral neuropathy or intolerance to temperature changes MUSCULOSKELETAL: nper HPI NEUROLOGICAL: negative for dizziness, numbness or weakness DERM: negative for rash or lesions PMHx: bladder CA, skin CA PSHx: three bladder resections, repair of b/l leg fractures FMHx: denies SoHx: remote history of tobacco use. denies EtOH or illicit drug use. with three children. retired; worked for [employer] ALLERGIES: PCN (rash), sulfa (hematuria?) MEDICATIONS: norco valium PHYSICAL EXAM: VITALS: blood pressure 115/60, pulse 71, respirations 19, temperature 97.7, pulse ox 96% on room air GENERAL: awake, alert and oriented x 3. at bedside HEENT: PERRL. EOMI. anicteric sclera. moist mucous membranes. OP is clear NECK: supple, no lymphadenopathy. CARDIOVASCULAR: S1 S2 PULMONARY: clear to ascultation bilaterally ABDOMEN: soft, nontender. positive bowel sounds. EXTREMITIES: no cyanosis, clubbing or edema NEURO: CN II - XII grossly intact SKIN: no rashes, ecchymosis or lesions ASSESSMENT AND PLAN: 78 y/o male with h/o bladder CA s/p resection and BCG transferred from OSH with worsening compression of T12 burst fracture preoperative clearance: ECG notes NSR with no ST changes or TWI. patient low risk; no further testing needed acute pain: discontinue valium. start lidoderm patch, tramadol 100 mg PO Q6 and tylenol 500 mg PO Q6. change norco to prn. start robaxin prn. bowel regimen: start miralax T12 burst fracture: considering surgical options; management per primary team PPX: SCD/TEDs Thank you for allowing us to assist in this patient's care. CORY HOSPITALIST GIS INSTRUCTOR; please page [phone] with questions
--- OUTSIDE RECORDS SUMMARY | 2019-02-02 10:11 | XMS REPORT | Continuity of Care Document ---
:1935 Author Organization [facility] Care Team Providers Name Role Phone Chris Mercado MD Unavailable Insurance Providers Payer name Policy type / Policy ID Covered republican ID Policy Hdz Coverage type [place]IC[place] [employer] AETNA (PPO) AETNA - OPEN ACCESS (MEDICARE REPLACEMENT HM AETNA (PPO) AETNA (PPO) AETNA (PPO) AETNA (MEDICARE REPLACEMENT PPO) AETNA - OPEN ACCESS (MEDICARE REPLACEMENT HM AETNA (PPO) AETNA (MEDICARE REPLACEMENT PPO) AETNA - OPEN ACCESS (MEDICARE REPLACEMENT HM AETNA (PPO) AETNA - OPEN ACCESS (MEDICARE REPLACEMENT HM AETNA (PPO) [place] [employer] AETNA - OPEN ACCESS (MEDICARE REPLACEMENT HM AETNA (PPO) MEDIC[place]: [employer] AETNA - OPEN ACCESS (MEDICARE REPLACEMENT HM AETNA (PPO) [place]: [employer] AETNA - OPEN ACCESS (MEDICARE REPLACEMENT HM AETNA (PPO) MEDIC[place]: [employer] AETNA - OPEN ACCESS (MEDICARE REPLACEMENT HM AETNA (PPO) MEDIC[place]: [employer] AETNA - OPEN ACCESS (MEDICARE REPLACEMENT HM AETNA (PPO) MEDIC[place]: [employer] AETNA - OPEN ACCESS (MEDICARE REPLACEMENT HM AETNA (PPO) MEDIC[place]: [employer] AETNA - OPEN ACCESS (MEDICARE REPLACEMENT HM AETNA (PPO) MEDIC[place]: [employer] AETNA - OPEN ACCESS (MEDICARE REPLACEMENT HM AETNA (PPO) MEDICARE [place]: [employer] AETNA - OPEN ACCESS (MEDICARE REPLACEMENT HM AETNA (PPO) MEDICARE [place]: [employer] AETNA - OPEN ACCESS (MEDICARE REPLACEMENT HM AETNA (PPO) MEDICARE [place]: [employer] AETNA - OPEN ACCESS (MEDICARE REPLACEMENT HM AETNA (PPO) MEDICARE [place]: [employer] AETNA - OPEN ACCESS (MEDICARE REPLACEMENT HM AETNA (PPO) MEDIC[place]: [employer] AETNA - OPEN ACCESS (MEDICARE REPLACEMENT HM AETNA (PPO) Encounters Encounter Performer Location Date Office Visit Chris Mercado MD [facility] [place] Sep 01, 2014 Allergies, Adverse Reactions, Alerts Type Substance Reaction Status Drug allergy SULFA Active Drug allergy PENICILLIN Active Problems Problem Effective Dates Problem Status CLOSED FRACTURE OF DORSAL [THORACIC] VERTEBRA WITHOUT Aug 30, 2014 Active MENTION OF SPINAL CORD INJURY Procedures Date Description Comments Sep 01, 2014 smoking status Never smoker Vital Signs Date Description Test Result Sep 01, 2014 weight E&M - 3141-9 WEIGHT 185 lb Sep 01, 2014 height E&M - 8302-2 HEIGHT 73 in Sep 01, 2014 temperature E&M TEMPERATURE 98.1 deg f Sep 01, 2014 pulse rate E&M - 8867-4 PULSE RATE 78 /min Sep 01, 2014 blood pressure, systolic - 8480-6 BP SYSTOLIC 128 mm Hg Sep 01, 2014 blood pressure, diastolic - 8462-4 BP DIASTOLIC 84 mm Hg
--- OUTSIDE RECORDS SUMMARY | 2019-02-02 10:11 | XMS REPORT | Continuity of Care Document ---
:1935 Author Organization [facility] Care Team Providers Name Role Phone Chris Mercado MD Unavailable Insurance Providers Payer name Policy type / Policy ID Covered democrat ID Policy Hdz Coverage type MEDICARE [place]: [...] AETNA (PPO) Encounters Encounter Performer Location Date Lab Report Chris Mercado MD [facility] [place] Sep 02, 2014 Allergies, Adverse Reactions, Alerts Type Substance [...]
--- OUTSIDE RECORDS SUMMARY | 2019-02-02 10:11 | XMS REPORT | Summary of Care ---
:1935 Author Encounter JOSE Parra(LIYAH) [id number] Date(s): 07/29/14 - 07/29/[address] Discharge Disposition: Home Physician Attending: Chris Mercado MD Physician Admitting: Chris Mercado MD Physician_Referring: Sky Patino MD Reason for Visit BACK PAIN: T-12 FX W/ MILD FRAGMENT RETROPULSION Vital Signs Most recent to oldest [Reference Range]: 1 2 Height 185.42 cm (07/29/14 8:24 AM) Temperature Oral [96.4-99.1 DegF] 97.4 DegF 98.5 DegF (07/29/14 12:05 PM) (07/29/14 8:00 AM) Systolic Blood Pressure [90-140 mmHg] 183 mmHg 1 156 mmHg *HI* *HI* (07/29/14 12:05 PM) (07/29/14 8:00 AM) Diastolic Blood Pressure [60-90 mmHg] 94 mmHg 2 96 mmHg *HI* *HI* (07/29/14 12:05 PM) (07/29/14 8:00 AM) Respiratory Rate [14-20 BRMIN] 18 BRMIN 16 BRMIN (07/29/14 12:05 PM) (07/29/14 8:00 AM) Peripheral Pulse Rate [60-100 bpm] 89 bpm 83 bpm (07/29/14 12:05 PM) (07/29/14 8:00 AM) Weight 84.091 kg (07/29/14 8:24 AM) Body Mass Index 24.46 m2 (07/29/14 8:24 AM) 1Result Comment: checked it a second time on right arm 144/962Result Comment: checked it a second time on right arm 144/96 Problem List Condition Effective Dates Status Health Status Informant Bladder cancer(Confirmed) Resolved Broken legs(Confirmed)1 Resolved 27400 Allergies, Adverse Reactions, Alerts Substance Reaction Severity Status penicillins Active sulfa drugs Active Medications acetaminophen 650 mg, 20.3 mL, Route: PO, Drug form: LIQ, Q4H, kg, PRN Pain 1-3/Temp > 99.5 F , Start date: 07/29/14 8:13:00, Duration: 30 day, Stop date: 08/28/14 8:12:00 Notes: Max hsveytdqnjmij=1564vv/day (4 gm/day). (Same as: Tylenol) Start Date: 07/29/14 Stop Date: 07/29/14 Status: Discontinuedacetaminophen-hydrocodone 325 mg-10 mg oral tablet 2 tab, Route: PO, Drug Form: TAB, kg, Q4H, PRN Pain Score 7-10, Start date: 10/30 8:13:00, Duration: 30 day, Stop date: 08/28/14 8:12:00 Notes: Do not exceed 4gm/day of acetaminophen. (Same as: [place] 325/10) Start Date: 07/29/14 Stop Date: 07/29/14 Status: Discontinuedacetaminophen-hydrocodone 325 mg-10 mg oral tablet 2 tab, PO, Q4H, Pain Score 7-10, # 60 tab, 0 Refill(s) Start Date: 07/29/14 Status: Ordereddiazepam 5 mg, 1 tab, Route: PO, Drug form: TAB, Q8H, kg, Start date: 07/29/14 16:00:00, Duration: 30 day, Stop date: 08/28/14 8:00:00 Notes: (Same as: Valium) Start Date: 07/29/14 Stop Date: 07/29/14 Status: Canceleddiazepam 5 mg oral tablet 5 mg=1 tab, PO, Q8H, # 30 tab, 0 Refill(s) Start Date: 07/29/14 Status: Ordereddocusate 100 mg, 1 cap, Route: PO, Drug form: CAP, Q12H, kg, Start date: 07/29/14 9:00:00 , Duration: 30 day, Stop date: 08/27/14 21:00:00 Notes: (Same as: Colace) (Do Not Crush) Start Date: 07/29/14 Stop Date: 07/29/14 Status: Discontinueddocusate sodium 100 mg oral capsule 100 mg=1 cap, PO, Q12H, # 60 cap, 0 Refill(s) Start Date: 07/29/14 Status: Orderedfamotidine 20 mg, 2 mL, Route: IVP, Drug form: INJ, Q12H, kg, Start date: 07/29/14 9:00:00 , Duration: 30 day, Stop date: 08/27/14 21:00:00 Notes: (Same as: Pepcid)Can be dilute in 5-10cc NS IVP: Slow IV push over at least 2 minutes. Start Date: 07/29/14 Stop Date: 07/29/14 Status: Discontinuedmorphine Sulfate 2 mg, 1 mL, Route: IVP, Drug form: INJ, Q1H, kg, PRN Pain Score 7-10, Start date : 07/29/14 8:13:00, Duration: 30 day, Stop date: 08/28/14 8:12:00 Notes: (Same as:MORPhine Sulfate) Start Date: 07/29/14 Stop Date: 07/29/14 Status: DiscontinuedSaline Flush 0.9% 5 ml, Route: IVP, Drug Form: INJ, kg, PRN, PRN Line Flush, Start date: 07/29/14 8:13:00, Duration: 30 day, Stop date: 08/28/14 8:12:00 Notes: (Same as: BD Posiflush) Start Date: 07/29/14 Stop Date: 07/29/14 Status: DiscontinuedSaline Flush 0.9% 5 ml, Route: IVP, Drug Form: INJ, kg, Q12H, Start date: 07/29/14 9:00:00, Duration: 30 day, Stop date: 08/27/14 21:00:00 Notes: (Same as: BD Posiflush) Start Date: 07/29/14 Stop Date: 07/29/14 Status: Discontinued Results ELECTROLYTES Most recent to oldest [Reference Range]: 1 Sodium Lvl [135-145 mEq/L] 141 mEq/L (07/29/14 9:47 AM) Potassium Lvl [3.5-5.1 mEq/L] 5.1 mEq/L (07/29/14 9:47 AM) Chloride Lvl [95-109 mEq/L] 106 mEq/L (07/29/14 9:47 AM) CO2 [24-32 mEq/L] 27 mEq/L (07/29/14 9:47 AM) AGAP [10.0-20.0 mEq/L] 13.1 mEq/L (07/29/14 9:47 AM) CHEM PANEL Most recent to oldest [Reference Range]: 1 Creatinine Lvl [0.5-1.4 mg/dL] 1.3 mg/dL (07/29/14 9:47 AM) eGFR 52 mL/min/1.73m2 1 *NA* (07/29/14 9:47 AM) BUN [7-22 mg/dL] 17 mg/dL (07/29/14 9:47 AM) B/C Ratio [6-25] 13 (07/29/14 9:47 AM) Glucose Lvl [70-99 mg/dL] 151 mg/dL 2 *HI* (07/29/14 9:47 AM) Total Protein [6.4-8.4 g/dL] 6.8 g/dL (07/29/14 9:47 AM) Albumin Lvl [3.5-5.0 g/dL] 4.1 g/dL (07/29/14 9:47 AM) Globulin [2.0-4.0 g/dL] 2.7 g/dL (07/29/14 9:47 AM) A/G Ratio [0.7-1.6] 1.5 (07/29/14 9:47 AM) Calcium Lvl [8.5-10.5 mg/dL] 9.2 mg/dL (07/29/14 9:47 AM) ALT [0-65 unit/L] 53 unit/L (07/29/14 9:47 AM) AST [0-37 unit/L] 28 unit/L (07/29/14 9:47 AM) Alk Phos [39-136 unit/L] 129 unit/L (07/29/14 9:47 AM) Bili Total [0.2-1.3 mg/dL] 1.6 mg/dL *HI* (07/29/14 9:47 AM) 1Result Comment: The eGFR is calculated using [...] eGFR should be multiplied by the estimated BMI.2Interpretive Data: Adult reference range values reflect the clinical guidelines of the [place] [employer].HEMATOLOGY Most recent to oldest [Reference Range]: 1 WBC [3.7-10.4 K/CMM] 5.5 K/CMM (07/29/14 9:47 AM) RBC [4.70-6.10 M/CMM] 5.37 M/CMM (07/29/14 9:47 AM) Hgb [14.0-18.0 g/dL] 16.0 g/dL (07/29/14 9:47 AM) Hct [42.0-54.0 %] 47.5 % (07/29/14 9:47 AM) MCV [80.0-94.0 fL] 88.5 fL (07/29/14 9:47 AM) MCH [27.0-31.0 pg] 29.8 pg (07/29/14 9:47 AM) MCHC [32.0-36.0 g/dL] 33.6 g/dL (07/29/14 9:47 AM) RDW [11.5-14.5 %] 12.5 % (07/29/14 9:47 AM) Platelet [133-450 K/CMM] 148 K/CMM (07/29/14 9:47 AM) MPV [7.4-10.4 fL] 9.4 fL (07/29/14 9:47 AM) Segs [45.0-75.0 %] 86.7 % *HI* (07/29/14 9:47 AM) Lymphocytes [20.0-40.0 %] 11.6 % *LOW* (07/29/14 9:47 AM) Monocytes [2.0-12.0 %] 1.2 % *LOW* (07/29/14 9:47 AM) Eosinophils [0.0-4.0 %] 0.2 % (07/29/14 9:47 AM) Basophils [0.0-1.0 %] 0.3 % (07/29/14 9:47 AM) Segs-Bands # [1.5-8.1 K/CMM] 4.8 K/CMM (07/29/14 9:47 AM) Lymphocytes # [1.0-5.5 K/CMM] 0.6 K/CMM *LOW* (07/29/14 9:47 AM) Monocytes # [0.0-0.8 K/CMM] 0.1 K/CMM (07/29/14 9:47 AM) PT [12.0-14.7 seconds] 14.6 seconds (07/29/14 9:47 AM) INR [0.85-1.17] 1.13 3 (07/29/14 9:47 AM) PTT [22.9-35.8 seconds] 34.9 seconds 4 (07/29/14 9:47 AM) 3Interpretive Data: RECOMMENDED RANGES FOR PROTIME INR: 2.0-3.0 for most medical and surgical thromboembolic states. 2.5-3.5 for artificial heart valves and recurrent embolism. INR SHOULD BE USED ONLY FOR PATIENTS ON STABLE ANTICOAGULANT THERAPY.4Interpretive Data: Heparin Therapeutic Range: 57 - 92 Seconds Medications Administered During Your Visit No data available for this section Immunizations No data available for this section Social History Social History Type Response Smoking Status Never smoker, Exposure to Tobacco Smoke None, Cigarette Smoking Last 365 Days No, Reg Smoking Cessation Counseling No
--- OUTSIDE RECORDS SUMMARY | 2019-02-02 10:12 | XMS REPORT | Continuity of Care Document ---
:1935 Author Organization [facility] Care Team Providers Name Role Phone Chris Mercado MD Unavailable Insurance Providers Payer name Policy type / Policy ID Covered libertarian ID Policy Hdz Coverage type MEDICARE B-[place]: [...] Location Date Office Visit Chris Mercado MD [facility] [place] Oct 20, 2014 Allergies, Adverse Reactions, Alerts Type Substance Reaction Status Drug allergy SULFA Active Drug allergy PENICILLIN Active Problems Problem Effective Dates Problem Status CLOSED FRACTURE OF DORSAL [THORACIC] VERTEBRA WITHOUT Aug 30, 2014 Active MENTION OF SPINAL CORD INJURY Procedures Date Description Comments Sep 01, 2014 smoking status Never smoker Oct 20, 2014 smoking status Never smoker Vital Signs [...] - 8462-4 BP DIASTOLIC 84 mm Hg Oct 20, 2014 weight E&M - 3141-9 WEIGHT 181.0 lb Oct 20, 2014 height E&M - 8302-2 HEIGHT 72 in Oct 20, 2014 temperature E&M TEMPERATURE 97.7 deg f Oct 20, 2014 pulse rate E&M - 8867-4 PULSE RATE 81 /min Oct 20, 2014 blood pressure, systolic - 8480-6 BP SYSTOLIC 156 mm Hg Oct 20, 2014 blood pressure, diastolic - 8462-4 BP DIASTOLIC 89 mm Hg
[2019-02-02] MEDS ORDERED: TETANUS & DIPHTHERIA TOX,ADULT 0.5 ML VIAL ONE (11:04)
[2019-02-02] MEDS ORDERED: LIDOCAINE 1% 20 ML MDV ONE (11:08)
--- NOTE | 2019-02-02 11:14 | RAD REPORT ---
EXAM DESCRIPTION: CT - [id number] - 02/02/2019 11:06 am CLINICAL HISTORY: Trauma, head and neck injury. PAIN COMPARISON: No comparisons TECHNIQUE: Axial 5 mm thick images of the head were obtained. Axial 2 mm thick images of the cervical spine were obtained with sagittal and coronal reconstruction images generated and reviewed. All CT scans are performed using dose optimization technique as appropriate and may include automated exposure control or mA/KV adjustment according to patient size. FINDINGS: CT HEAD WITHOUT CONTRAST: No acute hemorrhage, hydrocephalus or extra-axial collection is identified.Mild generalized brain atr ophy is present with mild periventricular and deep white matter chronic microvascular ischemic change s.No areas of brain edema or midline shift. The paranasal sinuses and mastoids are clear.Small left frontal scalp hematoma.The calvarium is intac t. CT CERVICAL SPINE WITHOUT CONTRAST: No fracture or subluxation.No prevertebral soft tissues swelling is identified. IMPRESSION: No acute intracranial or cervical spine findings.
--- NOTE | 2019-02-02 12:01 | ER ---
Nurse's Notes [facility] Name: Jann Duran Age: 83 yrs Sex: Male : 1935 Arrival Date: 02/02/2019 Time: 10:07 Bed 19 Private MD: Geoffrey Dang Diagnosis: Acute post-traumatic headache;Laceration without foreign body of nose;Laceration without foreign body of scalp Presentation: 02/02 10:09 Presenting complaint: Patient states: had some weakness today after starting his normal sv walk today and fell and hit his head and left hand on the concrete. Laceration noted above the left eyebrow. Denies LOC. Care prior to arrival: None. Mechanism of Injury: Fall from standing position. Trauma event details: Injury occurred in the [facility], Injury occurred: on a street or highway. Injury occurred: February 02, 2019 Injury occurred at: 09:00. 10:09 Acuity: BRAVO 3 sv 10:09 Method Of Arrival: Ambulatory sv 10:30 Transition of care: patient was not received from another setting of care. Onset of jl7 symptoms was February 02, 2019. Risk Assessment: Do you want to hurt yourself or someone else? Patient reports no desire to harm self or others. Initial Sepsis Screen: Does the patient meet any 2 criteria? No. Patient's initial sepsis screen is negative. Does the patient have a suspected source of infection? No. Patient's initial sepsis screen is negative. Trauma Activation: Not Applicable Physician: ED Physician; Name: ; Notified At: ; Arrived At: Physician: General Surgeon; Name: ; Notified At: ; Arrived At: Physician: Radiology; Name: ; Notified At: ; Arrived At: Physician: Respiratory; Name: ; Notified At: ; Arrived At: Physician: Lab; Name: ; Notified At: ; Arrived At: Historical: - Allergies: 10:12 PENICILLINS; sv 10:12 Sulfa (Sulfonamide Antibiotics); sv - PMHx: 10:12 Back pain; Transverse back injury; Bladder cancer; sv - Immunization history:: Last tetanus immunization: unknown. - Social history:: Patient/guardian denies using alcohol, street drugs, The patient lives with family, Smoking status: unknown. - Family history:: not pertinent. - Ebola Screening: : No symptoms or risks identified at this time. Screenin:30 Abuse screen: Denies threats or abuse. Denies injuries from another. Nutritional jl7 screening: No deficits noted. Tuberculosis screening: No symptoms or risk factors identified. Fall Risk None identified. Assessment: 10:30 General: Appears in no apparent distress. uncomfortable, Behavior is calm, cooperative, jl7 appropriate for age. Pain: Denies pain. Neuro: Level of Consciousness is awake, alert, obeys commands, Oriented to person, place, time, situation. Cardiovascular: Patient's skin is warm and dry. Respiratory: Airway is patent Respiratory effort is even, unlabored, Respiratory pattern is regular, symmetrical. Derm: Skin is pink, warm \T\ dry. Injury Description: Laceration sustained to forehead is contaminated, 2.6 to 7.5 cm long, was sustained less than 30 minutes ago. a small amount of bleeding noted at this time. 11:30 Reassessment: Patient appears in no apparent distress at this time. Patient and/or jl7 family updated on plan of care and expected duration. Pain level reassessed. Patient is alert, oriented x 3, equal unlabored respirations, skin warm/dry/pink. Patient denies pain at this time. Vital Signs: 10:12 BP 163 / 112; Pulse 84; Resp 16; Temp 98; Pulse Ox 100% ; Weight 79.38 kg; Height 6 ft. sv 0 in. (182.88 cm); 12:29 BP 160 / 98; Pulse 83; Resp 16; Pulse Ox 100% ; Pain 0/10; jl7 10:12 Body Mass Index 23.73 (79.38 kg, 182.88 cm) sv ED Course: 10:07 Patient arrived in ED. mr 10:08 Geoffrey Dang MD is Private Physician. mr 10:11 Triage completed. sv 10:12 Arm band placed on. sv 10:14 Deepthi Sutton MD is Attending Physician. ma2 10:30 Patient has correct armband on for positive identification. Bed in low position. Call jl7 light in reach. Side rails up X 1. Pulse ox on. NIBP on. 10:49 Vikas Camarena RN is Primary Nurse. jl7 11:06 CT Head C Spine In Process Unspecified. EDMS 12:32 No provider procedures requiring assistance completed. Patient did not have IV access jl7 during this emergency room visit. 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 Lot #: [id number]. } Route: IM; Site: left deltoid; 11:52 Follow up: Response: No adverse reaction jl7 11:52 Drug: Lidocaine (1 %) 10 ml {Note: Administered by Dr. Sutton.} Volume: 20 ml; Route: jl7 Infiltration; Outcome: 12:00 Discharge ordered by MD. reynolds 12:32 Discharged to home ambulatory. jl7 12:32 Condition: stable 12:32 Discharge instructions given to patient, family, Instructed on discharge instructions, follow up and referral plans. Demonstrated understanding of instructions, follow-up care. 12:36 Patient left the ED. jl7 Signatures: Dispatcher [employer] Joann Blanco, RN Tuyet Delgado Jahala, RN RN jl7 Alzahri, Mohammad, MD MD ma2
--- NOTE | 2019-02-02 12:01 | EDPHYS ---
Physician Documentation [facility] Name: Jann Duran Age: 83 yrs Sex: Male : 1935 Arrival Date: 02/02/2019 Time: 10:07 Bed 19 Private MD: Geoffrey Dang ED Physician Deepthi Sutton HPI: 02/02 10:50 This 83 yrs old Male presents to ER via Ambulatory with complaints of Fall ma2 Injury, Laceration To Head, Laceration To Hand. 10:50 Details of fall: The patient fell from an upright position, and struck a concrete ma2 surface. Onset: The symptoms/episode began/occurred suddenly, 1 hour(s) ago. Associated injuries: The patient sustained injury to the head. Severity of symptoms: At their worst the symptoms were mild, in the emergency department the symptoms are unchanged. tripped and fell . Historical: - Allergies: 10:12 PENICILLINS; sv 10:12 Sulfa (Sulfonamide Antibiotics); sv - PMHx: 10:12 Back pain; Transverse back injury; Bladder cancer; sv - Immunization history:: Last tetanus immunization: unknown. - Social history:: Patient/guardian denies using alcohol, street drugs, The patient lives with family, Smoking status: unknown. - Family history:: not pertinent. - Ebola Screening: : No symptoms or risks identified at this time. ROS: 10:50 Constitutional: Negative for fever, chills, and weight loss, Cardiovascular: Negative ma2 for chest pain, palpitations, and edema, Respiratory: Negative for shortness of breath, cough, wheezing, and pleuritic chest pain, Abdomen/GI: Negative for abdominal pain, nausea, diarrhea, and constipation. 10:50 ENT: Positive for injury or acute deformity, Negative for Gum pain 10:50 All other systems are negative. Exam: 10:50 Constitutional: This is a well developed, well nourished patient who is awake, alert, ma2 and in no acute distress. 10:50 Chest/axilla: Normal chest wall appearance and motion. Nontender with no deformity. No lesions are appreciated. Cardiovascular: Regular rate and rhythm with a normal S1 and S2. No gallops, murmurs, or rubs. Normal PMI, no JVD. No pulse deficits. Respiratory: Lungs have equal breath sounds bilaterally, clear to auscultation and percussion. No rales, rhonchi or wheezes noted. No increased work of breathing, no retractions or nasal flaring. Abdomen/GI: Soft, non-tender, with normal bowel sounds. No distension or tympany. No guarding or rebound. No evidence of tenderness throughout. Back: No spinal tenderness. No costovertebral tenderness. Full range of motion. MS/ Extremity: Pulses equal, no cyanosis. Neurovascular intact. Full, normal range of motion. Neuro: Awake and alert, GCS 15, oriented to person, place, time, and situation. Cranial nerves II-XII grossly intact. Motor strength 5/5 in all extremities. Sensory grossly intact. Cerebellar exam normal. Normal gait. 10:50 Head/face: Noted is abrasion(s), a laceration(s), that is deep, that is linear, 2 cm(s), of the forehead. Vital Signs: 10:12 BP 163 / 112; Pulse 84; Resp 16; Temp 98; Pulse Ox 100% ; Weight 79.38 kg; Height 6 ft. sv 0 in. (182.88 cm); 12:29 BP 160 / 98; Pulse 83; Resp 16; Pulse Ox 100% ; Pain 0/10; jl7 10:12 Body Mass Index 23.73 (79.38 kg, 182.88 cm) sv Laceration: 10:50 Wound Repair of 2cm ( 0.8in ) subcutaneous laceration to face. Distal ma2 neuro/vascular/tendon intact. Anesthesia: Local anesthetic administered with 10 mls of 1% lidocaine w/ Epi. Wound prep: Simple cleansing. Skin closed with 3 5-0 Prolene using simple sutures and sterile technique. Dressed with Bacitracin. Patient tolerated well. MDM: 10:14 Patient medically screened. ma2 10:50 Differential diagnosis: contusion, fracture, laceration. Data reviewed: vital signs, ma2 nurses notes. Counseling: I had a detailed discussion with the patient and/or guardian regarding: the historical points, exam findings, and any diagnostic results supporting the discharge/admit diagnosis, the presence of at least one elevated blood pressure reading (>120/80) during this emergency department visit, the need for outpatient follow up. 02/02 10:43 Order name: CT Head C Spine; Complete Time: 11:33 ma2 02/02 10:43 Order name: Prolene, Sutures: 4 Os; Complete Time: 11: [facility] 02/02 10:43 Order name: Dressing - Wound; Complete Time: 11: [facility] 02/02 10:43 Order name: Gloves, Sterile; Complete Time: 11: [facility] 02/02 10:43 Order name: Setup Suture Tray; Complete Time: 11: [place] Administered Medications: 11:01 CANCELLED (No Lido with Epi in the hospital): Lidocaine-Epinephrine -1%: (1:100,000) 10 jl7 ml 20 ml Infiltration once; to bedside 11:15 Drug: Tetanus-Diphtheria Toxoid Adult 0.5 ml {[employer]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 Lot #: [id number]. } Route: IM; Site: left deltoid; 11:52 Follow up: Response: No adverse reaction [facility] 11:52 Drug: Lidocaine (1 %) 10 ml {Note: Administered by Dr. Sutton.} Volume: 20 ml; Route: jl7 Infiltration; Disposition: 02/02/19 12:00 Discharged to Home. Impression: Acute post-traumatic headache, Laceration without foreign body of nose, Laceration without foreign body of scalp. - Condition is Stable. - Discharge Instructions: Facial Laceration, [id number]. - Medication Reconciliation Form, Thank You Letter, Antibiotic Education, Prescription Opioid Use form. - Follow up: Private Physician; When: Tomorrow; Reason: Continuance of care. - Notes: remove sutures in 5 days Signatures: Dispatcher [employer] EDJoann Rodarte RN RN sv Leal, Jahala, RN RN jl7 Alzahri, Mohammad, MD MD [facility] Corrections: (The following items were deleted from the chart) 11: 10:43 Lidocaine-Epinephrine -1%: (1:100,000) 10 ml 20 ml Infiltration once; to bedside jl7 ordered. [facility] 11: 11:01 Lidocaine-Epinephrine -1%: (1:100,000) 10 ml 20 ml Infiltration once; to bedside jl7 ordered. jl7 12:36 12:00 02/02/2019 12:00 Discharged to Home. Impression: Acute post-traumatic headache; jl7 Laceration without foreign body of nose; Laceration without foreign body of scalp. Condition is Stable. Forms are Medication Reconciliation Form, Thank You Letter, Antibiotic Education, Prescription Opioid Use. Follow up: Private Physician; When: Tomorrow; Reason: Continuance of care. ma2
[2019-02-02 12:44] VITALS: TEMP 98; O2SAT 100
[2019-02-02 12:46] VITALS: BP 160/98
== END 2019-02-02 12:36 | disposition home or self-care (01) ==
LOC: ER 10:04
PROC: 0JQ10ZZ Repair Face Subcutaneous Tissue and Fascia, Open Approach (ICD-10-PCS; principal; 2019-02-02)
DX: S01.01XA Laceration without foreign body of scalp, initial encounter (principal); S01.21XA Laceration without foreign body of nose, initial encounter; W18.30XA Fall on same level, unspecified, initial encounter; Y93.89 Activity, other specified; Y92.89 Other specified places as the place of occurrence of the external cause; Z88.0 Allergy status to penicillin; Z23 Encounter for immunization
CPT/HCPCS: 70450; 72125; 90714; 99283

== ENCOUNTER 2019-02-08 12:02 | Emergency (ER) | payer OTHER ==
--- OUTSIDE RECORDS SUMMARY | 2019-02-08 12:05 | XMS REPORT | Continuity of Care Document ---
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 Active [facility] PAIN FROM T12 4 Medical FRACTURE Center BACK PAIN: T-12 Active [facility] FX W/ MILD 4 [facility] FRAGMENT RETR [place] Bladder cancer Resolved Problem 10/22/2014 [facility] Broken Resolved Problem 10/22/2014 47149 OPI legs<sup>1</sup [facility] BACKACHE NOS Active [facility] FX DORSAL Active [facility] VERTEBRA-CLOSE [facility] PAIN IN LIMB Active [facility] Medications Medication Details Route Status Patient Ordering Order Source Instructions Provider Date heparin sodium, 5,000 unit, Inactive [facility] porcine 2500 Route: SUB-Q, 2013 Medical UNT/ML Drug form: INJ, Center Injectable Q8H, Dosing Solution Weight 84, kg, Start date: 08/08/14 16:00:00, Duration: 30 day, Stop date: 09/07/14 8:00:00 Bisacodyl 10 mg, 1 supp, No Longer [facility] Route: PA, Drug Active 2013 Medical form: SUPP, Center Daily, Dosing Weight 84, kg, PRN Constipation, Start date: 08/07/14 10:54:00, Duration: 30 day, Stop date: 09/06/14 10:53:00Notes: (Same As: Dulcolax, Bisco-Lax) Lidocaine 1 patch, TOP, Active [facility] Hydrochloride Daily, Pain, 2014 Medical 0.05 MG/MG Remove after 12 Center Transdermal hours, # 30 Patch patch, 0 [Lidoderm] Refill(s)Specia l Instructions: Remove after 12 hours remove patch 1 patch, Route: No Longer [facility] TOP, Bedtime, Active 2013 Medical Drug form: [place] ERFILM, Start date: 08/06/14 21:00:00, Duration: 30 day, Stop date: 09/04/14 21:00:00Notes: Remove patch 12 hours after application each day. Naprosyn 500 mg, 1 tab, No Longer [facility] Route: PO, Drug Active 2013 Medical form: TAB, BID, Center Dosing Weight 84, kg, Start date: 08/06/14 17:00:00, Duration: 30 day, Stop date: 09/05/14 9:00:00Notes: (Same as: Naprosyn) Take with food. Miralax 17 gm, 1 pkt, No Longer [facility] Route: PO, Drug Active 2013 Medical form: PWDR, [place] BID, Dosing Weight 84, kg, Start date: 08/06/14 17:00:00, Duration: 30 day, Stop date: 09/05/14 9:00:00Notes: Dissolve in 8 oz of water or juice. (Same as: Miralax) Robaxin 500 mg, Route: Inactive [facility] PO, Drug form: 2013 Medical TAB, Q8H, Center Dosing Weight 84, kg, Start date: 08/06/14 16:00:00, Duration: 30 day, Stop date: 09/05/14 8:00:00 Lidocaine 1 patch, Route: No Longer [facility] Hydrochloride TOP, Daily, Active 2013 Medical 0.05 MG/MG Drug form: [place] Transdermal FILM, Start Patch date: 08/06/14 [Lidoderm] 12:00:00, Duration: 30 day, Stop date: 09/05/14 9:00:00, Remove after 12 hoursSpecial Instructions: Remove after 12 hoursNotes: Apply only once for up to 12 hours in a 24-hour period (12 hours on and 12 hours off). (Same as: Lidoderm) "Remove old patch before application of new patch" Acetaminophen 500 mg, 1 tab, Inactive [facility] Route: PO, Drug 2013 Medical form: TAB, Q6H, Center Dosing Weight 84, kg, Start date: 08/06/14 12:00:00, Duration: 30 day, Stop date: 09/05/14 6:00:00Notes: Max acetaminophen 4000 mg/day (4 gm/day). (Same as: Tylenol Extra Strength) Tramadol 100 mg, 2 tab, No Longer [place] Route: PO, Drug Active 2013 Medical form: TAB, Q6H, Center Dosing Weight 84, kg, PRN as needed for pain, Start date: 08/06/14 12:00:00, Duration: 30 day, Stop date: 09/05/14 6:00:00Notes: Not to exceed 400mg/day. (Same As: Ultram) Robaxin 500 mg, 1 tab, No Longer [place] Route: PO, Drug Active 2013 Medical form: TAB, Q8H, Center Dosing Weight 84, kg, PRN as needed for pain, Start date: 08/06/14 10:44:00, Duration: 30 day, Stop date: 09/05/14 10:43:00Notes: (Same as:Robaxin) Acetaminophen 500 mg, 1 tab, No Longer [place] Route: PO, Drug Active 2013 Medical form: TAB, Q4H, Center Dosing Weight 84.091, kg, PRN Temperature >100.4, Start date: 08/06/14 10:42:00, Duration: 30 day, Stop date: 09/05/14 10:41:00, T > 100.4Notes: Max acetaminophen 4000 mg/day (4 gm/day). (Same as: Tylenol Extra Strength) Acetaminophen 1 tab, Route: Inactive [place] 325 MG / PO, Drug Form: 2013 Medical Hydrocodone TAB, Dosing Center Bitartrate 10 Weight 84.091, MG Oral Tablet kg, Q4H, PRN as needed for pain, Start date: 08/06/14 10:42:00, Duration: 30 day, Stop date: 09/05/14 10:41:00Notes: Do not exceed 4gm/day of acetaminophen. (Same as: [place] 325/10) Saline Flush 10 ml, Route: No Longer [place] 0.9% MISC, Drug Active 2013 Medical Form: INJ, Center Dosing Weight 84.091, kg, Q12H, Start date: 08/05/14 21:00:00, Duration: 30 day, Stop date: 09/04/14 9:00:00Notes: (Same as: BD Posiflush) sennosides, RESIDENTIAL 8.6 mg, 1 tab, No Longer [place] Route: PO, Drug Active 2013 Medical Form: TAB, Center Dosing Weight 84.091, kg, Q12H, Start date: 08/05/14 21:00:00, Duration: 30 day, Stop date: 09/04/14 9:00:00Notes: (Same as: Senokot) Docusate 100 mg, 1 cap, No Longer [place] Route: PO, Drug Active 2013 Medical form: CAP, Center Q12H, Dosing Weight 84.091, kg, Start date: 08/05/14 21:00:00, Duration: 30 day, Stop date: 09/04/14 9:00:00Notes: (Same as: Colace) (Do Not Crush) Famotidine 20 mg, 2 mL, No Longer [place] Route: IVP, Active 2013 Medical Drug form: INJ, Center Q12H, Dosing Weight 84.091, kg, Start date: 08/05/14 21:00:00, Duration: 30 day, Stop date: 09/04/14 9:00:00Notes: (Same as: Pepcid) Can be dilute in 5-10cc NS IVP: Slow IV push over at least 2 minutes. Diazepam 5 mg, 1 tab, No Longer [place] Route: PO, Drug Active 2013 Medical form: TAB, Q8H, Center Dosing Weight 84.091, kg, Start date: 08/05/14 16:00:00, Duration: 30 day, Stop date: 09/04/14 8:00:00Notes: (Same as: Valium) Acetaminophen 1 tab, Route: No Longer [place] 325 MG / PO, Drug Form: Active 2013 Medical Hydrocodone TAB, Dosing Center Bitartrate 10 Weight 84.091, MG Oral Tablet kg, Q4H, Start date: 08/05/14 16:00:00, Duration: 30 day, Stop date: 09/04/14 12:00:00Notes: Do not exceed 4gm/day of acetaminophen. (Same as: [place] 325/10) Saline Flush 10 ml, Route: No Longer [place] 0.9% MISC, Drug Active 2013 Medical Form: [...] Morphine 2 mg, 1 mL, No Longer [place] Route: IVP, Active 2013 Medical Drug form: INJ, Center Q1H, Dosing Weight 84.091, kg, PRN Pain Score 7-10, Start date: 08/05/14 12:29:00, Duration: 30 day, Stop date: 09/04/14 12:28:00Notes: (Same as:MORPhine Sulfate) Acetaminophen 650 mg, 20.3 No Longer [place] mL, Route: PO, Active 2013 Medical Drug form: LIQ, Center Q4H, Dosing Weight 84.091, kg, PRN Pain 1-3/Temp > 99.5 F, Start date: 08/05/14 12:29:00, Duration: 30 day, Stop date: 09/04/14 12:28:00Notes: Max acetaminophen=4 000mg/day (4 gm/day). (Same as: Tylenol) Acetaminophen 1 tab, Route: No Longer [place] 325 MG / PO, Drug Form: Active 2013 Medical Hydrocodone TAB, Dosing Center Bitartrate 10 Weight 84.091, MG Oral Tablet kg, Q4H, PRN Pain Score 4-6, Start date: 08/05/14 12:29:00, Duration: 30 day, Stop date: 09/04/14 12:28:00Notes: Do not exceed 4gm/day of acetaminophen. (Same as: [place] 325/10) Zofran 4 mg, Route: Inactive [facility] IVP, Drug form: 2013 Medical INJ, ONCE, Center Dosing Weight 84.091, kg, Priority: STAT, Start date: 08/05/14 11:59:00, Stop date: 08/05/14 11:59:00 Diazepam 5 mg, 1 tab, Inactive [facility] Route: PO, Drug 2013 Medical form: TAB, Q8H, Center kg, Start date: 07/29/14 16:00:00, Duration: 30 day, Stop date: 08/28/14 8:00:00Notes: (Same as: Valium) Docusate Sodium 100 mg=1 cap, Active [facility] 100 MG Oral PO, Q12H, # 60 2013 Medical Capsule cap, 0 Center Refill(s) diazepam 5 mg 5 mg=1 tab, PO, Active [facility] oral tablet Q8H, # 30 tab, 2013 Medical 0 Refill(s) Center Acetaminophen 2 tab, PO, Q4H, Active [facility] 325 MG / Pain Score 2013 Medical Hydrocodone 7-10, # 60 tab, Center Bitartrate 10 0 Refill(s) MG Oral Tablet Saline Flush 5 ml, Route: Inactive [facility] 0.9% IVP, Drug Form: 2013 Medical INJ, kg, Q12H, Center Start date: 07/29/14 9:00:00, Duration: 30 day, Stop date: 08/27/14 21:00:00Notes: (Same as: BD Posiflush) Docusate 100 mg, 1 cap, Inactive [facility] Route: PO, Drug 2013 Medical form: CAP, Center Q12H, kg, Start date: 07/29/14 9:00:00, Duration: 30 day, Stop date: 08/27/14 21:00:00Notes: (Same as: Colace) (Do Not Crush) Famotidine 20 mg, 2 mL, Inactive [facility] Route: IVP, 2013 Medical Drug form: INJ, Center Q12H, kg, Start date: 07/29/14 9:00:00, Duration: 30 day, Stop date: 08/27/14 21:00:00Notes: (Same as: Pepcid) Can be dilute in 5-10cc NS IVP: Slow IV push over at least 2 minutes. Saline Flush 5 ml, Route: Inactive [place] 0.9% IVP, Drug Form: 2013 Medical INJ, kg, PRN, Center PRN Line Flush, Start date: 07/29/14 8:13:00, Duration: 30 day, Stop date: 08/28/14 8:12:00Notes: (Same as: BD Posiflush) Acetaminophen 650 mg, 20.3 Inactive [place] mL, Route: PO, 2013 Medical Drug form: [...] not exceed 4gm/day of acetaminophen. (Same as: [place] 325/10) Morphine 2 mg, 1 mL, Inactive [facility] Route: IVP, 2013 Medical Drug form: INJ, [...] sulfa drugs Assertion Drug Active [facility] allergy [place] Immunizations Immunization Date Given Site Status Last [...] 09/01 - [facility] thoracic 2 thoracic - [place] views DX views DX DATE: Sep 01, [...] HEMATOLOGY Lymphocytes 8.3 % 20.0 - 08/05 [facility] 40.0 /2013 [facility] HEMATOLOGY Segs 80.3 % 45.0 - 08/05 [facility] 75.0 /2014 [facility] HEMATOLOGY Plt Morph See Note 4 08/05 4Result Comment: Due Medical (08/05/14 12:55 PM) to Center occassional clumps, the actual count may be slightly higher. HEMATOLOGY Monocytes 8.0 % 2.0 - 12.0 08/05 [facility] HEMATOLOGY RBC Morph Normal 08/05 [facility] (08/05/14 12:55 PM) [place] HEMATOLOGY Lymphocytes 1.1 K/CMM 1.0 - 5.5 08/05 [place] /2013 [facility] HEMATOLOGY Segs-Bands # 11.1 K/CMM 1.5 - 8.1 08/05 [facility] HEMATOLOGY Basophils 2.6 % 0.0 - 1.0 08/05 [facility] HEMATOLOGY Eosinophils 0.8 % 0.0 - 4.0 08/05 [facility] HEMATOLOGY Basophils # 0.4 K/CMM 0.0 - 0.2 08/05 [facility] HEMATOLOGY Eosinophils 0.1 K/CMM 0.0 - 0.5 08/05 [facility] HEMATOLOGY Monocytes # 1.1 K/CMM 0.0 - 0.8 08/05 [facility] HEMATOLOGY WBC 13.8 K/CMM 3.7 - 10.4 08/05 [facility] HEMATOLOGY RBC 4.67 M/CMM 4.70 - 08/05 [place] 6.10 [facility] HEMATOLOGY Hct 40.6 % 42.0 - 08/05 54.0 [facility] HEMATOLOGY Hgb 13.7 g/dL 14.0 - 08/05 18.0 [facility] HEMATOLOGY Platelet 178 K/CMM 133 - 450 08/05 [facility] HEMATOLOGY MPV 9.4 fL 7.4 - 10.4 08/05 [facility] HEMATOLOGY MCV 86.9 fL 80.0 - 08/05 [place] 94.0 [facility] HEMATOLOGY RDW 11.8 % 11.5 - 08/05 [place] 14.5 [facility] HEMATOLOGY MCH 29.4 pg 27.0 - 08/05 31.0 [facility] HEMATOLOGY MCHC 33.8 g/dL 32.0 - 08/05 [place] 36.0 [facility] CHEM PANEL eGFR 52 08/05 2Result Comment: The eGFR is calculated using the CKD-EPI formula. In most young, healthy individuals the eGFR will be >90 mL/ min/1.73m2. The eGFR declines with age. An eGFR of 60-89 may be normal in [facility] mL/min/1.73 some populations, particularly the elderly, for whom the CKD-EPI formula has not been extensively validated. Use of the eGFR is not recommended in the following populations: [address] Individuals with unstable creatinine concentrations, including [...] CO2 28 meq/L 24 - 32 08/05 [facility] CHEM PANEL Chloride Lvl 101 meq/L 95 - 109 08/05 [facility] CHEM PANEL Calcium Lvl 8.6 mg/dL 8.5 - 10.5 08/05 [facility] CHEM PANEL Potassium 5.0 meq/L 3.5 - 5.1 08/05 1Result [facility] Comment: [facility] Slightly Hemolyzed. CHEM PANEL Sodium Lvl 135 meq/L 135 - 145 08/05 [facility] CHEM PANEL Creatinine 1.3 mg/dL 0.5 - 1.4 08/05 [facility] CHEM PANEL BUN 33 mg/dL 7 - 22 08/05 [facility] CHEM PANEL Glucose Lvl 125 mg/dL 70 - 99 08/05 3Interpretive Data: Adult reference range values reflect the clinical guidelines of the [place] [employer]. [facility] CHEM PANEL AGAP 11.0 meq/L 10.0 - 08/05 [facility] . [facility] CHEM PANEL eGFR 52 07/29 1Result Comment: The eGFR is calculated using the CKD-EPI formula. In most young, healthy individuals the eGFR will be >90 mL/ min/1.73m2. The eGFR declines with age. An eGFR of 60-89 may be normal in [facility] mL/min/1.73 some populations, particularly the elderly, for whom the CKD-EPI formula has not been extensively validated. Use of the eGFR is not recommended in the following populations: [address] Individuals with unstable creatinine concentrations, including [...] Phos 129 unit/L 39 - 136 07/29 [facility] CHEM PANEL AST 28 unit/L 0 - 37 07/29 [facility] CHEM PANEL Albumin Lvl 4.1 g/dL 3.5 - 5.0 07/29 [facility] CHEM PANEL ALT 53 unit/L 0 - 65 07/29 [facility] CHEM PANEL Bili Total 1.6 mg/dL 0.2 - 1.3 07/29 [facility] CHEM PANEL Glucose Lvl 151 mg/dL 70 - 99 07/29 2Interpretive Data: Adult reference range values reflect the clinical guidelines of the [employer]. [facility] CHEM PANEL Creatinine 1.3 mg/dL 0.5 - 1.4 07/29 [facility] CHEM PANEL BUN 17 mg/dL 7 - 22 07/29 [facility] CHEM PANEL CO2 27 meq/L 24 - 32 07/29 [facility] CHEM PANEL Chloride Lvl 106 meq/L 95 - 109 07/29 [facility] CHEM PANEL Total 6.8 g/dL 6.4 - 8.4 07/29 [facility] CHEM PANEL Sodium Lvl 141 meq/L 135 - 145 07/29 [facility] CHEM PANEL Potassium 5.1 meq/L 3.5 - 5.1 07/29 [facility] CHEM PANEL Calcium Lvl 9.2 mg/dL 8.5 - 10.5 07/29 [facility] CHEM PANEL A/G Ratio 1.5 0.7 - 1.6 07/29 [facility] CHEM PANEL Globulin 2.7 g/dL 2.0 - 4.0 07/29 [facility] CHEM PANEL AGAP 13.1 meq/L 10.0 - 07/29 20.0 [facility] CHEM PANEL B/C Ratio 13 6 - 25 07/29 [facility] HEMATOLOGY Segs-Bands # 4.8 K/CMM 1.5 - 8.1 07/29 [facility] HEMATOLOGY Eosinophils 0.2 % 0.0 - 4.0 07/29 [facility] HEMATOLOGY Basophils 0.3 % 0.0 - 1.0 07/29 [facility] HEMATOLOGY Monocytes # 0.1 K/CMM 0.0 - 0.8 07/29 [facility] HEMATOLOGY Lymphocytes 0.6 K/CMM 1.0 - 5.5 07/29 [place] # /2013 [facility] HEMATOLOGY Lymphocytes 11.6 % 20.0 - 07/29 [place] 40.0 /2013 [facility] HEMATOLOGY Monocytes 1.2 % 2.0 - 12.0 07/29 [facility] HEMATOLOGY Segs 86.7 % 45.0 - 07/29 75.0 /2013 [facility] HEMATOLOGY PTT 34.9 s 22.9 - 07/29 4Interpretive [facility] 35.8 Data: Heparin [facility] Range: 57 - 92 [place] HEMATOLOGY PT 14.6 s 12.0 - 07/29 14.7 [facility] HEMATOLOGY INR 1.13 0.85 - 07/29 3Interpretive Data: RECOMMENDED RANGES FOR PROTIME INR: [facility] 1.17 2.0-3.0 for most medical and surgical thromboembolic states. Medical 2.5-3.5 for artificial heart valves and recurrent embolism. Center INR SHOULD BE USED ONLY FOR PATIENTS ON STABLE ANTICOAGULANT THERAPY. HEMATOLOGY MCHC 33.6 g/dL 32.0 - 07/29 36.0 [facility] HEMATOLOGY MCH 29.8 pg 27.0 - 07/29 31.0 [facility] HEMATOLOGY RDW 12.5 % 11.5 - 07/29 14.5 [facility] HEMATOLOGY MPV 9.4 fL 7.4 - 10.4 07/29 [facility] HEMATOLOGY Platelet 148 K/CMM 133 - 450 07/29 [facility] HEMATOLOGY Hgb 16.0 g/dL 14.0 - 07/29 18.0 [facility] HEMATOLOGY MCV 88.5 fL 80.0 - 07/29 [place] 94.0 [facility] HEMATOLOGY WBC 5.5 K/CMM 3.7 - 10.4 07/29 [facility] HEMATOLOGY RBC 5.37 M/CMM 4.70 - 07/29 [facility] 6.10 [facility] HEMATOLOGY Hct 47.5 % 42.0 - 07/29 [facility] 54.0 /2013 [facility] Vital Signs Vital Sign Value Date Comments Source Weight 181.0 10/20/2014 [facility] Height 72 10/20/2014 [facility] Temperature Oral (F) 97.7 F 10/20/2014 [facility] Heart Rate 81 10/20/2014 [facility] Systolic (mm Hg) 156 10/20/2014 [facility] Diastolic (mm Hg) 89 10/20/2014 [facility] Weight 185 09/01/2014 [facility] Height 73 09/01/2014 [facility] Temperature Oral (F) 98.1 [facility] 78 09/01/2014 [facility] Systolic (mm Hg) 128 09/01/2014 [facility] Diastolic (mm Hg) 84 09/01/2014 [facility] Systolic (mm Hg) 115 08/08/2014 [facility] Heart Rate 77 08/08/2014 [facility] Respitory Rate 18 08/08/2014 [facility] Temperature Oral (F) 97.7 F 08/08/2014 [facility] Center Diastolic (mm Hg) 68 08/08/2014 [facility] Systolic (mm Hg) 114 08/08/2014 [facility] Diastolic (mm Hg) 71 08/08/2014 [facility] Temperature Oral (F) 98.1 F 08/08/2014 [facility] Heart Rate 74 08/08/2014 [facility] Systolic (mm Hg) 113 08/08/2014 [facility] Diastolic (mm Hg) 68 08/08/2014 [facility] Heart Rate 71 08/08/2014 [facility] Temperature Oral (F) 97 F 08/08/2014 [facility] Respitory Rate 18 08/08/2014 [facility] Respitory Rate 16 08/07/2014 [facility] Weight 84 08/05/2014 [facility] BMI Calculated 23.78 08/05/2014 [facility] Height 187.96 cm 08/05/2014 [facility] Weight 84 08/05/2014 [facility] Weight 84 08/05/2014 [facility] Respitory Rate 18 07/29/2014 [facility] Systolic (mm Hg) 183 07/29/2014 [facility] Temperature Oral (F) 97.4 F 07/29/2014 [facility] Heart Rate 89 07/29/2014 [facility] Diastolic (mm Hg) 94 07/29/2014 [facility] BMI Calculated 24.46 07/29/2014 [facility] Weight 84.091 07/29/2014 [facility] Height 185.42 cm 07/29/2014 [facility] Temperature Oral (F) 98.5 F 07/29/2014 [facility] Systolic (mm Hg) 156 07/29/2014 [facility] Diastolic (mm Hg) 96 07/29/2014 [facility] Heart Rate 83 07/29/2014 [facility] Respitory Rate 16 07/29/2014 [facility] Encounters Location Location Encounter Encounter Reason Attending ADM DC Status Source Details Type Number For Provider Date Date Visit [facility] Inpatient [id number] Chris 07/29 07/29 [facility] /2013 [facility] Inpatient [id number] Chris 08/05 08/08 [facility] /2013 [facility] [id number] Chris 09/01 09/01 [facility] [address] [place] /2013 Neuro [facility] Outpt Diag [id number] Chris 09/01 09/02 [facility] /2013 [facility] Lab Report [id number] Chris 09/02 09/02 Toni Blandon [address] [place] /2013 [facility] [id number] Chris 10/20 10/20 [facility] [address] [place] /2013 Neuro [facility] Outpt Diag [id number] Chris 10/20 10/21 [facility] /2013 [facility] [place] Procedures Procedure Code Date Perfomer Comments Source
--- OUTSIDE RECORDS SUMMARY | 2019-02-08 12:05 | XMS REPORT | Continuity of Care Document ---
[...] Location Date Office Visit Chris Mercado MD [facility] 01, 2014 Allergies, Adverse Reactions, Alerts [...]
--- OUTSIDE RECORDS SUMMARY | 2019-02-08 12:06 | XMS REPORT | Continuity of Care Document ---
[...] Location Date Office Visit Chris Mercado MD [facility] [place] [facility] Oct 20, 2014 Allergies, Adverse Reactions, Alerts [...]
--- OUTSIDE RECORDS SUMMARY | 2019-02-08 12:06 | XMS REPORT | Continuity of Care Document ---
:1935 Author Organization [facility] Care Team Providers Name Role Phone Chris Mercado MD Unavailable Insurance Providers Payer name Policy type / Policy ID Covered alliance party ID Policy Hdz Coverage type MEDICARE [place]: [...] Location Date Lab Report Chris Mercado MD [facility] [place] Sep 02, 2014 Allergies, Adverse Reactions, Alerts [...]
--- NOTE | 2019-02-08 12:51 | ER ---
Nurse's Notes [facility] Name: Jann Duran Age: 83 yrs Sex: Male : 1935 Arrival Date: 02/08/2019 Time: 12:06 Bed 10 Private MD: Geoffrey Dang Diagnosis: Encounter for suture removal. Presentation: 02/08 12:09 Presenting complaint: Patient states: need for suture removal. 3 sutures noted above aa5 left eyebrow. Pt reports sutures were placed on 02/02/19. Transition of care: patient was not received from another setting of care. Onset of symptoms was February 08, 2019. Risk Assessment: Do you want to hurt yourself or someone else? Patient reports no desire to harm self or others. Initial Sepsis Screen: Does the patient meet any 2 criteria? No. Patient's initial sepsis screen is negative. Does the patient have a suspected source of infection? No. Patient's initial sepsis screen is negative. Care prior to arrival: None. 12:09 Method Of Arrival: Ambulatory aa5 12:09 Acuity: BRAVO 5 aa5 Triage Assessment: 12:09 General: Appears comfortable, Behavior is calm, cooperative. EENT: No signs and/or aa5 symptoms were reported regarding the EENT system. Neuro: Level of Consciousness is awake, alert, obeys commands, Oriented to person, place, time, situation. Respiratory: Airway is patent Respiratory effort is even, unlabored, Respiratory pattern is regular, symmetrical. Derm: Skin is pink, warm \T\ dry. Historical: - Allergies: 12:10 PENICILLINS; aa5 12:10 Sulfa (Sulfonamide Antibiotics); aa5 - PMHx: 12:10 Back pain; Bladder cancer; Transverse back injury; aa5 - Immunization history:: Last tetanus immunization: up to date. - Social history:: Smoking status: Patient/guardian denies using tobacco. - Ebola Screening: : No symptoms or risks identified at this time. Screenin:00 Abuse screen: Denies threats or abuse. Denies injuries from another. Nutritional hb screening: No deficits noted. Tuberculosis screening: No symptoms or risk factors identified. Fall Risk None identified. Assessment: 13:00 General: Appears in no apparent distress. Behavior is calm, cooperative. Pain: Denies hb pain. Neuro: Level of Consciousness is awake, alert, obeys commands, Oriented to person, place, time, situation. Cardiovascular: Capillary refill < 3 seconds Patient's skin is warm and dry. Respiratory: Airway is patent Respiratory effort is even, unlabored, Respiratory pattern is regular, symmetrical. Vital Signs: 12:10 BP 131 / 78; Pulse 78; Resp 16 S; Temp 98.0(TE); Pulse Ox 97% on R/A; aa5 ED Course: 12:06 Patient arrived in ED. mr 12:06 Geoffrey Dang MD is Private Physician. mr 12:09 Triage completed. aa5 12:09 Arm band placed on. aa5 12:09 Patient has correct armband on for positive identification. Adult w/ patient. aa5 12:11 Lizeth Jenkins, COSME is Primary Nurse. aa5 12:29 Ford Eldridge MD is Attending Physician. ps1 12:51 Geoffrey Dang MD is Referral Physician. ps1 13:17 No provider procedures requiring assistance completed. Patient did not have IV access hb during this emergency room visit. Administered Medications: No medications were administered Outcome: 12:51 Discharge ordered by . ps1 13:16 Discharged to home ambulatory, with significant other. hb 13:16 Condition: stable 13:16 Discharge instructions given to patient, family, Instructed on discharge instructions, follow up and referral plans. wound care, Demonstrated understanding of instructions, follow-up care, wound care. 13:17 Patient left the ED. hb Signatures: Tuyet Canales mr Lizeth Jenkins, COSME RN aa5 Lisa Beavers RN RN Ford Eldridge MD MD ps1
--- NOTE | 2019-02-08 12:51 | EDPHYS ---
Physician Documentation [facility] Name: Jann Duran Age: 83 yrs Sex: Male : 1935 Arrival Date: 02/08/2019 Time: 12:06 Bed 10 Private MD: Geoffrey Dang ED Physician Ford Eldridge HPI: 02/08 12:47 This 83 yrs old Male presents to ER via Ambulatory with complaints of Suture ps1 Removal. 12:47 patient had 3 sutures placed a week ago. Here for removal. No complications. . ps1 Historical: - Allergies: 12:10 PENICILLINS; aa5 12:10 Sulfa (Sulfonamide Antibiotics); aa5 - PMHx: 12:10 Back pain; Bladder cancer; Transverse back injury; aa5 - Immunization history:: Last tetanus immunization: up to date. - Social history:: Smoking status: Patient/guardian denies using tobacco. - Ebola Screening: : No symptoms or risks identified at this time. ROS: 12:47 Constitutional: Negative for fever, chills, and weight loss, Respiratory: Negative for ps1 shortness of breath, cough, wheezing, and pleuritic chest pain, MS/Extremity: Negative for injury and deformity, Skin: Negative for injury, rash, and discoloration. Exam: 12:47 Constitutional: This is a well developed, well nourished patient who is awake, alert, ps1 and in no acute distress. Head/Face: Normocephalic, atraumatic. Cardiovascular: Regular rate and rhythm. No gallops, murmurs, or rubs. Normal PMI, no JVD. No pulse deficits. Respiratory: Lungs have equal breath sounds bilaterally, clear to auscultation and percussion. No rales, rhonchi or wheezes noted. No increased work of breathing, no retractions or nasal flaring. MS/ Extremity: Pulses equal, no cyanosis. Neurovascular intact. Full, normal range of motion. Neuro: Awake and alert, GCS 15, oriented to person, place, time, and situation. Cranial nerves II-XII grossly intact. Sensory grossly intact. Psych: Awake, alert, with orientation to person, place and time. Behavior, mood, and affect are within normal limits. 12:47 Skin: 3 sutures above left eyebrow with healing abrasion. Vital Signs: 12:10 BP 131 / 78; Pulse 78; Resp 16 S; Temp 98.0(TE); Pulse Ox 97% on R/A; aa5 Procedures: 12:47 Suture/Staple removal: Removed 3 sutures, from outer aspect of left eyebrow, site ps1 appears well healed, dressed with Neosporin, Patient tolerated well. MDM: 12:47 Data reviewed: vital signs, nurses notes, and as a result, I will discharge patient. ps1 12:51 Patient medically screened. ps1 Administered Medications: No medications were administered Disposition: 02/08/19 12:51 Discharged to Home. Impression: Encounter for suture removal. . - Condition is Stable. - Discharge Instructions: Suture Removal, Care After. - Medication Reconciliation Form, Thank You Letter, Antibiotic Education, Prescription Opioid Use form. - Follow up: Geoffrey Dang MD; When: As needed. Follow up: Emergency Department; When: As needed; Reason: Worsening of condition. - Problem is an ongoing problem. - Symptoms have improved. Signatures: Lizeth Jenkins RN RN aa5 Lisa Beavers RN RN Ford Eldridge MD MD ps1 Corrections: (The following items were deleted from the chart) 13:17 12:51 02/08/2019 12:51 Discharged to Home. Impression: Encounter for suture removal. . hb Condition is Stable. Forms are Medication Reconciliation Form, Thank You Letter, Antibiotic Education, Prescription Opioid Use. Follow up: Geoffrey Dang; When: As needed. Follow up: Emergency Department; When: As needed; Reason: Worsening of condition. Problem is an ongoing problem. Symptoms have improved. ps1
[2019-02-08 13:39] VITALS: BP 131/78; TEMP 98; O2SAT 97
== END 2019-02-08 13:17 | disposition home or self-care (01) ==
LOC: ER 12:02
DX: Z48.02 Encounter for removal of sutures (principal); Z88.0 Allergy status to penicillin; Z88.2 Allergy status to sulfonamides
CPT/HCPCS: 99281